=== PATIENT | female | born 1965 | race Caucasian/White ===

== ENCOUNTER 2016-05-04 12:40 | Emergency (ER) | payer OTHER | END 2016-05-04 16:11 | disposition home or self-care (01) | DX: J06.9 Acute upper respiratory infection, unspecified (principal); I10 Essential (primary) hypertension; E03.9 Hypothyroidism, unspecified ==

== ENCOUNTER 2016-05-14 18:20 | Emergency (ER) | payer OTHER ==
[2016-05-14] MEDS ORDERED: HYDROcod/ACET 5/325 Prepack 6 PO STA (21:21)
[2016-05-14] MEDS ORDERED: HYDROcod/ACET 5/325 Prepack 6 PO ONE (21:25)
== END 2016-05-14 21:38 | disposition home or self-care (01) ==
DX: R07.89 Other chest pain (principal); I10 Essential (primary) hypertension; E03.9 Hypothyroidism, unspecified

== ENCOUNTER 2016-08-22 14:34 | Outpatient (CLI) | payer OTHER ==
[2016-08-22 17:09] LABS: THYROID STIMULATING HORMONE < 0.08 uIU/mL (0.34-5.60)
== END 2016-08-22 14:35 | disposition home or self-care (01) ==
LOC: LAB 14:34
PROVIDERS: ATTEND Nurse Practitioner Family
DX: E03.4 Atrophy of thyroid (acquired) (principal)
CPT/HCPCS: 84439; 84443; 84481; 84482

== ENCOUNTER 2016-09-17 13:14 | Outpatient (CLI) | payer OTHER ==
--- NOTE | 2016-09-20 15:47 | Mammography Report ---
DIGITAL SCREENING MAMMOGRAM: 09/17/2016 CLINICAL INDICATION: A 51-year-old nulliparous patient for screening. COMPARISON: 05/2015 TECHNIQUE: Routine CC and MLO projections were obtained of the breasts. FINDINGS: Scattered fibroglandular tissue is present within the breasts. There are no dominant alberto s, suspicious microcalcifications, or secondary signs of malignancy. In comparison to the previous st udies, there are no significant changes. ASSESSMENT: NO MAMMOGRAPHIC EVIDENCE OF MALIGNANCY. NO SIGNIFICANT INTERVAL CHANGES. RECOMMENDATION: Screening mammography is recommended annually. BIRADS category 1 - negative. STANDARD QUALIFYING STATEMENTS 1. This examination was reviewed with the aid of Computed-Aided Detection (CAD). 2. A negative or benign imaging report should not delay biopsy if clinically suspicious findings are present. Consider surgical consultation if warranted. More than 5% of cancers are not identified by i maging. 3. Dense breasts may obscure an underlying neoplasm. JOB #: [id number] EXT JOB #:[id number]
== END 2016-09-17 13:15 | disposition home or self-care (01) ==
LOC: DI 13:14
PROVIDERS: ATTEND Nurse Practitioner Family
DX: Z12.39 Encounter for other screening for malignant neoplasm of breast (principal)
CPT/HCPCS: 77067

== ENCOUNTER 2016-12-23 08:16 | Outpatient (CLI) | payer OTHER ==
[2016-12-23 09:05] LABS: ALBUMIN/GLOBULIN RATIO 1.3 (1.0-2.2); BILIRUBIN,TOTAL 0.7 mg/dL (0.2-1.0); CALCIUM 8.9 mg/dL (8.5-10.3); POTASSIUM 4.2 mmol/L (3.5-5.0); TOTAL PROTEIN 6.8 g/dL (6.7-8.2)
[2016-12-23 09:12] LABS: BASOPHILS % (AUTO) 0.5 %; EOSINOPHILS # (AUTO) 0.2 10^3/uL (0.0-0.7); EOSINOPHILS % (AUTO) 2.3 %; HCT - HEMATOCRIT 36.6 % (37.0-47.0); HGB - HEMOGLOBIN 12.5 g/dL (12.0-16.0); LYMPHOCYTES # (AUTO) 2.7 10^3/uL (1.5-3.5); LYMPHOCYTES % (AUTO) 31.4 %; MEAN CORPUSCULAR HEMOGLOBIN 31.7 pg (27.0-31.0); MEAN CORPUSCULAR HGB CONC 34.1 g/dL (32.0-36.0); MEAN CORPUSCULAR VOLUME 93.1 fL (81.0-99.0); MEAN PLATELET VOLUME 7.5 fL (7.9-10.8); MONOCYTES # (AUTO) 0.5 10^3/uL (0.0-1.0); MONOCYTES % (AUTO) 5.5 %; NEUTROPHILS # (AUTO) 5.3 10^3/uL (1.5-6.6); NEUTROPHILS % (AUTO) 60.3 %; RED BLOOD COUNT 3.94 10^6/uL (4.20-5.40); RED CELL DISTRIBUTION WIDTH 13.3 % (12.0-15.0); THYROID STIMULATING HORMONE 0.28 uIU/mL (0.34-5.60); UNCORRECTED WHITE BLOOD COUNT 8.7 x10^3/uL; WHITE BLOOD COUNT 8.7 x10^3/uL (4.8-10.8)
[2016-12-23 09:17] LABS: FERRITIN 12.8 ng/mL (11.0-306.8)
== END 2016-12-23 08:17 | disposition home or self-care (01) ==
LOC: LAB 08:16
PROVIDERS: ATTEND Nurse Practitioner Family
DX: R53.82 Chronic fatigue, unspecified (principal); L65.9 Nonscarring hair loss, unspecified; E03.4 Atrophy of thyroid (acquired)
CPT/HCPCS: 36415; 80050; 82728; 83540; 84436; 84466; 84481; 85651; 86141

== ENCOUNTER 2017-02-10 14:31 | Emergency (ER) | payer OTHER ==
[2017-02-10 14:40] VITALS: BP 111/64
--- NOTE | 2017-02-10 14:44 | ED Physician Documentation ---
PD HPI SKIN - Stated complaint Stated Complaint: RASH - Chief complaint Chief Complaint: General - History obtained from History obtained from: Patient - History of Present Illness Timing - onset: How many days ago (2) Timing - duration: Days (2) Timing - details: Gradual onset, Still present (increased number of spots today) Location: Bodywide Quality / character: Itchy, Discolored (red), Raised, Vesicular (almost - coming to faint point but not truly vesicular) Improved by: Steroid cream Associated symptoms: No: Fever, Abd pain, N/V/D Contributing factors: Exposed to medication (she had a new brand of thyroid medication started 3 weeks ago (liothyroxine instead of Bronson), otherwise same meds.). No: Exposed to soap / lotion, Insect bite /sting, Recent illness Similar symptoms before: Has not had sx before Recently seen: Not recently seen Review of Systems Constitutional: denies: Fever, Chills Nose: denies: Rhinorrhea / runny nose, Congestion Throat: denies: Sore throat Respiratory: denies: Cough GI: denies: Abdominal Pain, Nausea, Vomiting, Diarrhea : denies: Dysuria, Frequency Skin: reports: Rash PD PAST MEDICAL HISTORY - Past Medical History Cardiovascular: Hypertension, High cholesterol Respiratory: None Neuro: None Endocrine/Autoimmune: HyPOthyroidism HEENT: None Psych: Anxiety, Other - Past Surgical History Past Surgical History: No - Present Medications Home Medications: Ambulatory Orders Medication Instructions Recorded Confirmed Alprazolam [Xanax] 0.5 mg ORAL BID 03/26/14 05/14/16 Citalopram Hydrobromide [Celexa] 40 mg ORAL DAILY 03/26/14 05/14/16 Lisinopril 20 mg ORAL DAILY 03/26/14 05/14/16 Thyroid,Pork [[place] Thyroid] 90 mg ORAL DAILY 03/26/14 05/14/16 Zolpidem Tartrate [Ambien] 10 mg ORAL QPM PRN 03/26/14 05/14/16 Control Pills 08/15/14 08/15/14 Ibuprofen [Motrin] 800 mg PO Q8H PRN #30 tablet 08/15/14 05/14/16 Simvastatin 20 mg QPM 08/15/14 05/14/16 Albuterol Sulfate [Proair Hfa 8.5 gm IH QID #1 hfa.aer.ad 05/04/16 05/14/16 Inhaler] guaiFENesin/CODEINE [Robitussin AC] 10 ml PO Q6H PRN #240 ml 05/04/16 05/14/16 HYDROcod/ACETAM 5/325 [[place] 5/325] 1 - 2 ea PO Q6H PRN #15 tablet 05/14/16 Cetirizine [ZyrTEC] 10 mg PO DAILY #20 tablet 02/10/17 Dexamethasone [Decadron] 4 mg PO BID #10 tablet 02/10/17 - Allergies Allergies/Adverse Reactions: Allergies Allergy/AdvReac Type Severity Reaction Status Date / Time diphenhydramine HCl * Allergy Unknown Verified 02/10/17 14:40 [From Benadryl] - Social History Does the pt smoke?: No Smoking Status: Never smoker Does the pt drink ETOH?: Yes Does the pt have substance abuse?: No - Immunizations Immunizations are current?: Yes PD ED PE NORMAL - Vitals Vital signs reviewed: Yes - General General: Alert and oriented X 3, No acute distress, Well developed/nourished - HEENT HEENT: Ears normal, Pharynx benign - Neck Neck: Supple, no meningeal sign, Other (mild anterior adenopathy of neck) - Cardiac Cardiac: RRR, No murmur - Respiratory Respiratory: Clear bilaterally - Abdomen Abdomen: Soft, Non tender, No organomegaly - Derm Derm: Normal color, Warm and dry, Other (extremities and trunk with discrete raised, pointed red spots with slight tenderness. Not vesicular per se. No pustules. ) - Extremities Extremities: No tenderness to palpate, Normal ROM s pain, No edema, No calf tenderness / cord - Neuro Neuro: Alert and oriented X 3, No motor deficit, Normal speech Results - Vitals Vitals: Vital Signs - 24 hr 02/10/17 14:36 Temperature 36.6 C Heart Rate 79 Respiratory 18 Rate Blood Pressure 111/64 O2 Saturation 100 Oxygen O2 Source Room air - Labs Labs: Microbiology 02/10/17 15:04 Wound Culture - Preliminary Back - Lower No growth PD MEDICAL DECISION MAKING - ED course Complexity details: considered differential (the spots almost come to a point but truly vesicles as yet. Are not umbilicated, but could be molluscum. No URI symptoms to suggest varicella or such. Likely viral exanthem. She has pets at home, so to check them for fleas. ), d/w patient Departure - Departure Disposition: 01 Home, Self Care Clinical Impression: Vesicular rash Condition: Stable Record reviewed to determine appropriate education?: Yes Instructions: ED Dermatitis Non Specific Rash Follow-Up: KIRK GARCIA ARNP [Primary Care Provider] - Prescriptions: Cetirizine [ZyrTEC] 10 mg PO DAILY #20 tablet Dexamethasone [Decadron] 4 mg PO BID #10 tablet Comments: There are many potential causes of this rash. It may be an allergy response to medication or topical from things like bug bites. It does not look bacterial at this point but it did do a culture of a couple of the spots. This will result in 2-3 days. For now we will treated with dexamethasone steroid twice daily for 5 days. Add cetirizine long-acting antihistamine if needed for itching. Cool towels can help as well. There is some [id number] medications such as Aveeno (oatmeal colloid) which can help with the itching as well. Recheck if not improved over the next 2 or 3 days. Discharge Date/Time: 02/10/17 15:14
[2017-02-10] MEDS ORDERED: DEXAMETHASONE 10 MG/ML VIAL PO STA (15:06)
[2017-02-10] MEDS ORDERED: DEXAMETHASONE 10 MG/ML VIAL ONE (15:14)
== END 2017-02-10 15:14 | disposition home or self-care (01) ==
LOC: ED 14:31
DX: R21 Rash and other nonspecific skin eruption (principal); I10 Essential (primary) hypertension; E78.00 Pure hypercholesterolemia, unspecified; E03.9 Hypothyroidism, unspecified
CPT/HCPCS: 87070; 87205; 99282; 99283

== ENCOUNTER 2017-02-28 09:34 | Outpatient (CLI) | payer OTHER ==
[2017-02-28 18:30] LABS: BASOPHILS % (AUTO) 0.6 %; EOSINOPHILS # (AUTO) 0.2 10^3/uL (0.0-0.7); EOSINOPHILS % (AUTO) 2.6 %; HCT - HEMATOCRIT 38.1 % (37.0-47.0); HGB - HEMOGLOBIN 12.6 g/dL (12.0-16.0); LYMPHOCYTES # (AUTO) 2.6 10^3/uL (1.5-3.5); LYMPHOCYTES % (AUTO) 41.6 %; MEAN CORPUSCULAR HEMOGLOBIN 31.1 pg (27.0-31.0); MEAN CORPUSCULAR VOLUME 94.3 fL (81.0-99.0); MEAN PLATELET VOLUME 8.4 fL (7.9-10.8); MONOCYTES # (AUTO) 0.3 10^3/uL (0.0-1.0); MONOCYTES % (AUTO) 4.8 %; NEUTROPHILS # (AUTO) 3.2 10^3/uL (1.5-6.6); NEUTROPHILS % (AUTO) 50.4 %; NUCLEATED RED BLOOD CELLS AUTO 0.1 /100WBC; RED BLOOD COUNT 4.04 10^6/uL (4.20-5.40); RED CELL DISTRIBUTION WIDTH 12.9 % (12.0-15.0); UNCORRECTED WHITE BLOOD COUNT 6.4 x10^3/uL; WHITE BLOOD COUNT 6.4 x10^3/uL (4.8-10.8)
[2017-02-28 19:11] LABS: ALBUMIN/GLOBULIN RATIO 1.1 (1.0-2.2); BILIRUBIN,TOTAL 0.4 mg/dL (0.2-1.0); CALCIUM 8.5 mg/dL (8.5-10.3); POTASSIUM 3.9 mmol/L (3.5-5.0); TOTAL PROTEIN 6.7 g/dL (6.7-8.2)
[2017-02-28 19:21] LABS: THYROID STIMULATING HORMONE 0.68 uIU/mL (0.34-5.60)
[2017-02-28 19:28] LABS: TOTAL T3 0.95 ng/mL (0.87-1.78)
[2017-03-01 10:07] LABS: HOMOCYSTEINE 4.7 umol/L (<10.4)
== END 2017-02-28 09:35 | disposition home or self-care (01) ==
LOC: LAB.F 09:34
PROVIDERS: ATTEND Nurse Practitioner Family
DX: R53.82 Chronic fatigue, unspecified (principal); E03.4 Atrophy of thyroid (acquired)
CPT/HCPCS: 36415; 80050; 81599; 82626; 82627; 83090; 84436; 84439; 84480; 84481; 85651; 86140; 86141; 86376; 86800

== ENCOUNTER 2017-09-22 15:49 | Emergency (ER) | payer OTHER ==
[2017-09-22 16:06] VITALS: BP 123/79
--- NOTE | 2017-09-22 16:48 | ED Physician Documentation ---
PD HPI URI - Stated complaint Stated Complaint: SINUS ISSUES - Chief complaint Chief Complaint: Heent - History obtained from History obtained from: Patient - History of Present Illness Timing - onset: How many weeks ago (03/29) Timing duration: Weeks Timing details: Gradual onset, Still present (worsening) Associated symptoms: Fever, Chills, Nasal congestion, Sinus pain Contributing factors: No: COPD / asthma Review of Systems Constitutional: denies: Fever, Chills Nose: reports: Rhinorrhea / runny nose, Congestion, Sinus pressure / pain Throat: reports: Sore throat Cardiac: denies: Chest pain / pressure Respiratory: denies: Cough PD PAST MEDICAL HISTORY - Past Medical History Cardiovascular: Hypertension, High cholesterol Respiratory: None Endocrine/Autoimmune: HyPOthyroidism HEENT: None Psych: Anxiety, Other - Past Surgical History Past Surgical History: No - Present Medications Home Medications: Ambulatory Orders Medication Instructions Recorded Confirmed Alprazolam [Xanax] 0.5 mg ORAL BID 03/26/14 05/14/16 Citalopram Hydrobromide [Celexa] 40 mg ORAL DAILY 03/26/14 05/14/16 Lisinopril 20 mg ORAL DAILY 03/26/14 05/14/16 Thyroid,Pork [[place] Thyroid] 180 mg ORAL DAILY 03/26/14 05/14/16 Zolpidem Tartrate [Ambien] 10 mg ORAL QPM PRN 03/26/14 05/14/16 Simvastatin 20 mg QPM 08/15/14 05/14/16 Cetirizine [ZyrTEC] 10 mg PO DAILY #20 tablet 02/10/17 Benzonatate [Tessalon] 100 mg PO TID PRN #20 capsule 09/22/17 Cephalexin [Keflex] 500 mg PO TID #21 capsule 09/22/17 Dexamethasone [Decadron] 4 mg PO DAILY #5 tablet 09/22/17 Lactobacillus Acidophilus 1 each PO 09/22/17 [Probiotic Acidophilus] buPROPion [Wellbutrin Sr] 150 mg PO DAILY 09/22/17 09/22/17 - Allergies Allergies/Adverse Reactions: Allergies Allergy/AdvReac Type Severity Reaction Status Date / Time diphenhydramine HCl * Allergy Unknown Verified 09/22/17 16:05 [From Benadryl] - Social History Does the pt smoke?: No Smoking Status: Never smoker Does the pt drink ETOH?: Yes Does the pt have substance abuse?: No - Immunizations Immunizations are current?: Yes - POLST Patient has POLST: No PD ED PE NORMAL - Vitals Vital signs reviewed: Yes - General General: Alert and oriented X 3, No acute distress, Well developed/nourished - HEENT HEENT: Ears normal, Moist mucous membranes, Pharynx benign, Other (sinus area tender to percussion) - Neck Neck: Supple, no meningeal sign, No adenopathy - Cardiac Cardiac: RRR, No murmur - Respiratory Respiratory: Clear bilaterally Results - Vitals Vitals: Oxygen O2 Source Room air PD MEDICAL DECISION MAKING - ED course Complexity details: considered differential, d/w patient - Sepsis Event Vital Signs: Oxygen O2 Source Room air Departure - Departure Disposition: 01 Home, Self Care Clinical Impression: Acute sinusitis Qualifiers: Sinusitis location: unspecified location Recurrence: non-recurrent Qualified Code(s): J01.90 - Acute sinusitis, unspecified Condition: Stable Record reviewed to determine appropriate education?: Yes Instructions: ED Sinusitis Abx Tx Follow-Up: Anderson Corona MD [Primary Care Provider] - Prescriptions: Benzonatate [Tessalon] 100 mg PO TID PRN #20 capsule PRN Reason: Cough Cephalexin [Keflex] 500 mg PO TID #21 capsule Dexamethasone [Decadron] 4 mg PO DAILY #5 tablet Comments: Saline nasal spray several times a day to cleanse the nasal passage. Continue your usual medications. Add Decadron steroid anti-inflammatory for 5 days. This should help quite a bit to reduce inflammation and promote drainage and decrease pressure. There may be some bacterial component to it by her description and so add Keflex 3 times a day for a week. Use Tessalon if needed for cough. Recheck if still not improving over the next several days. Discharge Date/Time: 09/22/17 17:56
== END 2017-09-22 17:56 | disposition home or self-care (01) ==
LOC: ED 15:49
DX: J01.90 Acute sinusitis, unspecified (principal); I10 Essential (primary) hypertension
CPT/HCPCS: 99283

== ENCOUNTER 2018-04-26 14:56 | Emergency (ER) | payer OTHER ==
[2018-04-26 15:06] VITALS: BP 111/64
--- NOTE | 2018-04-26 15:14 | ED Physician Documentation ---
History of Present Illness - Stated complaint Stated Complaint: BILAT EYE IRRATION - Chief complaint Chief Complaint: Heent - History obtained from History obtained from: Patient - History of Present Illness Timing: How many days ago (2) Pain level max: 3 Pain level now: 2 - Additonal information Additional information: 52-year-old female states she has been fighting a sinus infection for a few days and started noticing the right lower eyelid swelling and turning red with some clear discharge. Nothing makes it better or worse. She describes it is mostly itchy but also burning. Does not wear contacts or glasses Review of Systems Constitutional: denies: Fever, Chills Throat: denies: Sore throat Respiratory: denies: Cough GI: denies: Vomiting, Diarrhea Skin: denies: Rash Musculoskeletal: denies: Neck pain, Back pain PD PAST MEDICAL HISTORY - Past Medical History Cardiovascular: Hypertension, High cholesterol Respiratory: None Endocrine/Autoimmune: HyPOthyroidism HEENT: None Psych: Anxiety, Other - Past Surgical History Past Surgical History: No - Present Medications Home Medications: Ambulatory Orders Medication Instructions Recorded Confirmed Alprazolam [Xanax] 0.5 mg ORAL BID 03/26/14 04/26/18 Citalopram Hydrobromide [Celexa] 40 mg ORAL DAILY 03/26/14 04/26/18 Lisinopril 20 mg ORAL DAILY 03/26/14 04/26/18 Thyroid,Pork [[place] Thyroid] 180 mg ORAL DAILY 03/26/14 04/26/18 Zolpidem Tartrate [Ambien] 10 mg ORAL QPM PRN 03/26/14 04/26/18 Simvastatin 20 mg QPM 08/15/14 04/26/18 Cetirizine [ZyrTEC] 10 mg PO DAILY #20 tablet 02/10/17 04/26/18 buPROPion [Wellbutrin Sr] 150 mg PO DAILY 09/22/17 04/26/18 Ketotifen Fumarate [Zaditor] 1 drops EACHEYE Q8H PRN #1 drops 04/26/18 Polymyxin B/Trimeth Ophth Drop 1 drops EACHEYE Q3H 7 Days #1 04/26/18 [Polytrim Ophth Drops] bottle - Allergies Allergies/Adverse Reactions: Allergies Allergy/AdvReac Type Severity Reaction Status Date / Time diphenhydramine HCl * Allergy Anxiety Verified 04/26/18 15:07 [From Benadryl] - Social History Does the pt smoke?: No Smoking Status: Never smoker Does the pt drink ETOH?: Yes Does the pt have substance abuse?: No - Immunizations Immunizations are current?: Yes - POLST Patient has POLST: No PD ED PE NORMAL - Vitals Vital signs reviewed: Yes - General General: Alert and oriented X 3, No acute distress - HEENT HEENT: Moist mucous membranes, Pharynx benign, Other (R eye - mild erythema and stye to the lower eyelid. clear drainage. No pain with EOM. L eye normal) - Neck Neck: Supple, no meningeal sign - Cardiac Cardiac: RRR, Strong equal pulses - Respiratory Respiratory: No respiratory distress, Clear bilaterally - Derm Derm: Warm and dry - Neuro Neuro: Alert and oriented X 3 - Psych Psych: Normal mood, Normal affect Results - Vitals Vitals: Vital Signs - 24 hr 04/26/18 15:04 Temperature 36.3 C L Heart Rate 97 Respiratory 16 Rate Blood Pressure 111/64 O2 Saturation 100 Oxygen O2 Source Room air PD MEDICAL DECISION MAKING - ED course Complexity details: considered differential, d/w patient ED course: 52-year-old female with a right eye stye versus possible allergic/bacterial conjunctivitis. Placed on Polytrim ophthalmic as well as Zaditor eyedrops and have her follow-up with her doctor. She does not wear contacts. No evidence of foreign body. Patient counseled regarding signs and symptoms for which I believe and urgent re-evaluation would be necessary. Patient with good understanding of and agreement to plan and is comfortable going home at this time This document was made in part using voice recognition software. While efforts are made to proofread this document, sound alike and grammatical errors may occur. Departure - Departure Disposition: Home, Self Care Clinical Impression: Stye Qualifiers: Laterality: right Eyelid: lower Qualified Code(s): H00.012 - Hordeolum externum right lower eyelid Conjunctivitis Qualifiers: Conjunctivitis type: acute Acute conjunctivitis type: unspecified Laterality: right Qualified Code(s): H10.31 - Unspecified acute conjunctivitis, right eye Condition: Good Instructions: ED Conjunctivitis Nonspecific, ED Hordeolum Follow-Up: Adnerson Corona MD [Primary Care Provider] - Within 1 week (if not better) Prescriptions: Ketotifen Fumarate [Zaditor] 1 drops EACHEYE Q8H PRN #1 drops PRN Reason: itching Polymyxin B/Trimeth Ophth Drop [Polytrim Ophth Drops] 1 drops EACHEYE Q3H 7 Days #1 bottle Comments: Use the medications as prescribed. Return if you worsen. This should improve over the next 2-3 days. Also use warm compresses 2-3 times daily. Discharge Date/Time: 04/26/18 15:17
== END 2018-04-26 15:17 | disposition home or self-care (01) ==
LOC: ED 14:56
DX: H00.012 Hordeolum externum right lower eyelid (principal); H10.31 Unspecified acute conjunctivitis, right eye; I10 Essential (primary) hypertension; E78.00 Pure hypercholesterolemia, unspecified; E03.9 Hypothyroidism, unspecified
CPT/HCPCS: 99283

== ENCOUNTER 2018-08-23 13:16 | Emergency (ER) | payer OTHER ==
[2018-08-23 13:27] VITALS: BP 128/75
--- NOTE | 2018-08-23 14:24 | ED Physician Documentation ---
PD HPI URI - Stated complaint Stated Complaint: SORE THROAT/DIZZY/EAR PX - Chief complaint Chief Complaint: Heent - History obtained from History obtained from: Patient - History of Present Illness Timing - onset: How many days ago (2-3 days of congestion and some sore throat, ear pressure. Now with marked left ear pain and throat pain with swallowing today.) Timing duration: Days Timing details: Gradual onset, Still present Associated symptoms: Ear pain (left), Sinus pain, Sore throat. No: Fever, Dyspnea, NVD Contributing factors: No: Sick contact Similar symptoms before: Has not had sx before Recently seen: Not recently seen Review of Systems Constitutional: denies: Fever Ears: reports: Ear pain Nose: reports: Congestion, Sinus pressure / pain Throat: reports: Sore throat. 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 : None HEENT: None Psych: Anxiety, Other Musculoskeletal: None Derm: None - Past Surgical History Past Surgical History: No - Present Medications Home Medications: Ambulatory Orders Medication Instructions Recorded Confirmed Alprazolam [Xanax] 0.5 mg ORAL BID 03/26/14 08/23/18 Citalopram Hydrobromide [Celexa] 40 mg ORAL DAILY 03/26/14 08/23/18 Lisinopril 20 mg ORAL DAILY 03/26/14 08/23/18 Thyroid,Pork [[place] Thyroid] 180 mg ORAL DAILY 03/26/14 08/23/18 Zolpidem Tartrate [Ambien] 10 mg ORAL QPM PRN 03/26/14 08/23/18 Simvastatin 20 mg QPM 08/15/14 08/23/18 Cetirizine [ZyrTEC] 10 mg PO DAILY #20 tablet 02/10/17 08/23/18 buPROPion [Wellbutrin Sr] 150 mg PO DAILY 09/22/17 08/23/18 Ketotifen Fumarate [Zaditor] 1 drops EACHEYE Q8H PRN #1 drops 04/26/18 08/23/18 Polymyxin B/Trimeth Ophth Drop 1 drops EACHEYE Q3H 7 Days #1 04/26/18 08/23/18 [Polytrim Ophth Drops] bottle Amoxicillin 500 mg PO TID #21 capsule 08/23/18 Naproxen 500 mg PO BID #20 tablet 08/23/18 dexAMETHasone [Decadron] 4 mg PO DAILY #5 tablet 08/23/18 guaiFENesin/CODEINE [Robitussin AC] 10 ml PO Q6H PRN #240 ml 08/23/18 - Allergies Allergies/Adverse Reactions: Allergies Allergy/AdvReac Type Severity Reaction Status Date / Time diphenhydramine HCl * Allergy Anxiety Verified 08/23/18 13:27 [From Benadryl] - Social History Does the pt smoke?: No Smoking Status: Never smoker Does the pt drink ETOH?: Yes Does the pt have substance abuse?: No - Immunizations Immunizations are current?: Yes - POLST Patient has POLST: No PD ED PE NORMAL - Vitals Vital signs reviewed: Yes - General General: Alert and oriented X 3, Well developed/nourished - HEENT HEENT: Pharynx benign. No: Ears normal (right is okay. left with marked redness and swelling, bulging and looks tense. No perforation at this time. ) - Neck Neck: Supple, no meningeal sign, Other (left anterior adenopathy) - Respiratory Respiratory: Clear bilaterally - Derm Derm: Normal color, Warm and dry, No rash - Neuro Neuro: Alert and oriented X 3, No motor deficit, Normal speech Results - Vitals Vitals: Vital Signs - 24 hr 08/23/18 13:24 Temperature 36.6 C Heart Rate 106 H Respiratory 14 Rate Blood Pressure 128/75 O2 Saturation 100 Oxygen O2 Source Room air PD MEDICAL DECISION MAKING - ED course Complexity details: considered differential (sounds likely either URI or allergies and now otitis media left. ), d/w patient Departure - Departure Disposition: 01 Home, Self Care Clinical Impression: Otitis media Qualifiers: Otitis media type: suppurative Chronicity: acute Laterality: left Recurrence: non-recurrent Spontaneous tympanic membrane rupture: without spontaneous rupture Qualified Code(s): H66.002 - Acute suppurative otitis media without spontaneous rupture of ear drum, left ear Upper respiratory infection Qualifiers: URI type: unspecified URI Qualified Code(s): J06.9 - Acute upper respiratory infection, unspecified Condition: Stable Record reviewed to determine appropriate education?: Yes Instructions: ED Otitis Media Acute Adult Prescriptions: Amoxicillin 500 mg PO TID #21 capsule dexAMETHasone [Decadron] 4 mg PO DAILY #5 tablet guaiFENesin/CODEINE [Robitussin AC] 10 ml PO Q6H PRN #240 ml PRN Reason: Cough Naproxen 500 mg PO BID #20 tablet Comments: Stay well-hydrated. Naproxen twice daily for inflammation and pain. Add Tylenol if needed. Amoxicillin antibiotic 3 times a day for a week. Add Decadron steroid for inflammation of the eustachian tube and bronchials. Add cough medicine as needed. Recheck if not improving the next day or 2. Discharge Date/Time: 08/23/18 15:51
[2018-08-23] MEDS ORDERED: AMOXICILLIN 250 MG CAPSULE PO STA (15:01)
[2018-08-23] MEDS ORDERED: guaiFENesin/CODEINE 5 ML UDC PO STA (15:01)
[2018-08-23] MEDS ORDERED: DEXAMETHASONE 10 MG/ML VIAL PO STA (15:01)
[2018-08-23] MEDS ORDERED: CHERRY SYRUP 10 ML UDC PO ONE (15:01)
[2018-08-23] MEDS ORDERED: MECLIZINE 12.5 MG TABLET PO STA (15:01)
[2018-08-23] MEDS ORDERED: ACETAMINOPHEN 325 MG TABLET PO STA (15:03)
== END 2018-08-23 15:51 | disposition home or self-care (01) ==
LOC: ED 13:16
DX: H66.002 Acute suppurative otitis media without spontaneous rupture of ear drum, left ear (principal); J06.9 Acute upper respiratory infection, unspecified; I10 Essential (primary) hypertension
CPT/HCPCS: 99283; A9270

== ENCOUNTER 2018-09-07 15:40 | Emergency (ER) | payer OTHER ==
[2018-09-07 15:44] VITALS: BP 133/94
--- NOTE | 2018-09-07 15:57 | ED Physician Documentation ---
PD HPI URI - Stated complaint Stated Complaint: FLU SYMPTOMS - Chief complaint Chief Complaint: Resp - History obtained from History obtained from: Patient - History of Present Illness Timing - onset: How many weeks ago (has had cough and congestion for several weeks. Seen few weeks ago with it and Dx URI and ear infection. Rx meds and improved ear and decreased cough but not completely. Has had increased cough the past week, with poor sleep due to cough.) Timing duration: Weeks Timing details: Gradual onset, Still present (worse the past week) Associated symptoms: Productive cough, Chest pain (anteriorly with coughing), Dyspnea. No: Fever, Ear pain (not for the past 2 weeks, that part improved.), Nasal congestion Contributing factors: No: Sick contact, COPD / asthma Recently seen: Emergency Dept (few weeks ago) Review of Systems Constitutional: reports: Myalgias, Fatigue. denies: Fever, Chills Nose: reports: Congestion. denies: Sinus pressure / pain Throat: denies: Sore throat Cardiac: reports: Chest pain / pressure (with coughing). denies: Palpitations, Pedal edema, Calf pain Respiratory: reports: Dyspnea, Cough. denies: Wheezing GI: denies: Nausea, Vomiting, Diarrhea Skin: denies: Rash, Lesions Musculoskeletal: denies: Extremity swelling PD PAST MEDICAL HISTORY - Past Medical History Cardiovascular: Hypertension, High cholesterol Respiratory: None Neuro: None Endocrine/Autoimmune: HyPOthyroidism GI: None CARE ASST: None : None HEENT: None Psych: Anxiety, Other Musculoskeletal: None Derm: None - Past Surgical History Past Surgical History: No - Present Medications Home Medications: Ambulatory Orders Medication Instructions Recorded Confirmed Alprazolam [Xanax] 0.5 mg ORAL BID 03/26/14 08/23/18 Citalopram Hydrobromide [Celexa] 40 mg ORAL DAILY 03/26/14 08/23/18 Lisinopril 20 mg ORAL DAILY 03/26/14 08/23/18 Thyroid,Pork [[place] Thyroid] 180 mg ORAL DAILY 03/26/14 08/23/18 Zolpidem Tartrate [Ambien] 10 mg ORAL QPM PRN 03/26/14 08/23/18 Simvastatin 20 mg QPM 08/15/14 08/23/18 Cetirizine [ZyrTEC] 10 mg PO DAILY #20 tablet 02/10/17 08/23/18 buPROPion [Wellbutrin Sr] 150 mg PO DAILY 09/22/17 08/23/18 Ketotifen Fumarate [Zaditor] 1 drops EACHEYE Q8H PRN #1 drops 04/26/18 08/23/18 Naproxen 500 mg PO BID #20 tablet 08/23/18 Albuterol Sulf [Ventolin Hfa 1 - 2 puffs INH Q4HR PRN #1 inhaler 09/07/18 Inhaler] Azithromycin [Zithromax] 0 mg PO DAILY #6 tablet 09/07/18 Benzonatate [Tessalon Perle] 100 mg PO TID PRN #30 capsule 09/07/18 dexAMETHasone [Decadron] 4 mg PO DAILY #5 tablet 09/07/18 guaiFENesin/CODEINE [Robitussin AC] 10 ml PO Q6H PRN #240 ml 09/07/18 - Allergies Allergies/Adverse Reactions: Allergies Allergy/AdvReac Type Severity Reaction Status Date / Time diphenhydramine HCl * Allergy Anxiety Verified 09/07/18 15:44 [From Benadryl] - Social History Does the pt smoke?: No Smoking Status: Never smoker Does the pt drink ETOH?: Yes Does the pt have substance abuse?: No - Immunizations Immunizations are current?: Yes - POLST Patient has POLST: No PD ED PE NORMAL - Vitals Vital signs reviewed: Yes - General General: Alert and oriented X 3, No acute distress, Well developed/nourished - HEENT HEENT: Ears normal, Pharynx benign - Neck Neck: Supple, no meningeal sign, No adenopathy - Cardiac Cardiac: RRR, No murmur - Respiratory Respiratory: Clear bilaterally - Abdomen Abdomen: Soft, Non tender - Back Back: No CVA TTP - Derm Derm: Normal color, Warm and dry - Extremities Extremities: No tenderness to palpate, Normal ROM s pain, No edema, No calf tenderness / cord - Neuro Neuro: Alert and oriented X 3, No motor deficit, Normal speech Results - Vitals Vitals: Vital Signs - 24 hr 09/07/18 15:43 Temperature 36.7 C Heart Rate 84 Respiratory 18 Rate Blood Pressure 133/94 H O2 Saturation 100 Oxygen O2 Source Room air PD MEDICAL DECISION MAKING - ED course Complexity details: re-evaluated patient, considered differential, d/w patient Departure - Departure Disposition: 01 Home, Self Care Clinical Impression: Lower resp. tract infection Condition: Stable Record reviewed to determine appropriate education?: Yes Instructions: ED Upper Resp Infec Abx Tx Prescriptions: Albuterol Sulf [Ventolin Hfa Inhaler] 1 - 2 puffs INH Q4HR PRN #1 inhaler PRN Reason: Shortness Of Air/Wheezing Azithromycin [Zithromax] 0 mg PO DAILY #6 tablet Benzonatate [Tessalon Perle] 100 mg PO TID PRN #30 capsule PRN Reason: Cough dexAMETHasone [Decadron] 4 mg PO DAILY #5 tablet guaiFENesin/CODEINE [Robitussin AC] 10 ml PO Q6H PRN #240 ml PRN Reason: Cough Comments: Stay well-hydrated. Zithromax antibiotic for 5 days. Decadron steroid for 5 days. Both are daily. Use albuterol inhaler 2 puffs 4 times a day and extra times as needed to improve breathing and reduce coughing. For the cough symptoms itself, you can use the codeine cough medicine and also the Tessalon Perls. Recheck if not improving over the next several days to week. Discharge Date/Time: 09/07/18 16:27
[2018-09-07] MEDS ORDERED: CHERRY SYRUP 10 ML UDC PO ONE (16:16)
[2018-09-07] MEDS ORDERED: DEXAMETHASONE 10 MG/ML VIAL PO STA (16:16)
[2018-09-07] MEDS ORDERED: BENZONATATE 100 MG CAPSULE PO STA (16:16)
== END 2018-09-07 16:27 | disposition home or self-care (01) ==
LOC: ED 15:40
DX: J22 Unspecified acute lower respiratory infection (principal); I10 Essential (primary) hypertension; Z79.899 Other long term (current) drug therapy; Z86.69 Personal history of other diseases of the nervous system and sense organs
CPT/HCPCS: 99283; A9270

== ENCOUNTER 2018-10-14 16:07 | Emergency (ER) | payer OTHER ==
[2018-10-14 16:17] VITALS: BP 130/52
--- NOTE | 2018-10-14 16:25 | ED Physician Documentation ---
History of Present Illness - Stated complaint Stated Complaint: LEFT FOOT INJURY - Chief complaint Chief Complaint: Ext Problem - History obtained from History obtained from: Patient - History of Present Illness Timing: Prior to arrival - Additonal information Additional information: Patient is a 53-year-old female presenting with left foot and ankle pain after [place]. Patient reports that her foot became stuck and she fell forward while walking and landed on her left knee bracing herself with her hands, although has no complaints to these areas except for superficial abrasion to the left knee. Patient has been unable to bear weight since this time and complains of lateral malleoli pain to the left ankle, as well as diffuse foot pain. Patient denies any changes and sensation and range of motion is limited due to pain. Patient denies striking of her head, loss of consciousness, or other injury. No other improving or worsening factors noted. Review of Systems Skin: denies: Rash, Lesions, Abrasion (s), Laceration (s) Musculoskeletal: reports: Extremity pain, Joint pain, Pain with weight bearing. denies: Extremity swelling, Joint swelling PD PAST MEDICAL HISTORY - Past Medical History Cardiovascular: Hypertension, High cholesterol Respiratory: None Neuro: None Endocrine/Autoimmune: HyPOthyroidism GI: None LEGAL ACTIVITY ADJUDICATOR: None : None HEENT: None Psych: Anxiety, Other Musculoskeletal: None Derm: None - Past Surgical History Past Surgical History: No - Present Medications Home Medications: Ambulatory Orders Medication Instructions Recorded Confirmed Alprazolam [Xanax] 0.5 mg ORAL BID 03/26/14 08/23/18 Citalopram Hydrobromide [Celexa] 40 mg ORAL DAILY 03/26/14 08/23/18 Lisinopril 20 mg ORAL DAILY 03/26/14 08/23/18 Thyroid,Pork [[place] Thyroid] 180 mg ORAL DAILY 03/26/14 08/23/18 Zolpidem Tartrate [Ambien] 10 mg ORAL QPM PRN 03/26/14 08/23/18 Simvastatin 20 mg QPM 08/15/14 08/23/18 Cetirizine [ZyrTEC] 10 mg PO DAILY #20 tablet 02/10/17 08/23/18 buPROPion [Wellbutrin Sr] 150 mg PO DAILY 09/22/17 08/23/18 Ketotifen Fumarate [Zaditor] 1 drops EACHEYE Q8H PRN #1 drops 04/26/18 08/23/18 Naproxen 500 mg PO BID #20 tablet 08/23/18 Albuterol Sulf [Ventolin Hfa 1 - 2 puffs INH Q4HR PRN #1 inhaler 09/07/18 Inhaler] Azithromycin [Zithromax] 0 mg PO DAILY #6 tablet 09/07/18 Benzonatate [Tessalon Perle] 100 mg PO TID PRN #30 capsule 09/07/18 dexAMETHasone [Decadron] 4 mg PO DAILY #5 tablet 09/07/18 guaiFENesin/CODEINE [Robitussin AC] 10 ml PO Q6H PRN #240 ml 09/07/18 Hydrocodone/Acetaminophen 1 - 2 each PO Q6H PRN #14 tablet 10/14/18 [Hydrocodon-Acetaminophen 5-325] - Allergies Allergies/Adverse Reactions: Allergies Allergy/AdvReac Type Severity Reaction Status Date / Time diphenhydramine HCl * Allergy Anxiety Verified 10/14/18 16:17 [From Benadryl] - Social History Does the pt smoke?: No Smoking Status: Never smoker Does the pt drink ETOH?: Yes Does the pt have substance abuse?: No - Immunizations Immunizations are current?: Yes - POLST Patient has POLST: No PD ED PE NORMAL - Vitals Vital signs reviewed: Yes - General General: Alert and oriented X 3, No acute distress, Well developed/nourished - HEENT HEENT: Atraumatic, Moist mucous membranes - Cardiac Cardiac: Strong equal pulses - Respiratory Respiratory: No respiratory distress - Derm Derm: Normal color, Warm and dry, No rash - Extremities Extremities: No deformity. No: No tenderness to palpate (Mild tenderness to left lateral malleoli and diffusely over left foot worse and at the dorsal aspect. No left knee or tib-fib pain with palpation. No other obvious deformities left lower extremity.) - Neuro Neuro: No sensory deficit. No: No motor deficit (Difficulty bearing weight over left leg with no distinct loss of strength or range of motion, but difficult due to pain. No changes in sensation.) - Psych Psych: Normal mood, Normal affect Results - Vitals Vitals: Vital Signs - 24 hr 10/14/18 16:15 Temperature 36.4 C L Heart Rate 96 Respiratory 18 Rate Blood Pressure 130/52 L O2 Saturation 98 Oxygen O2 Source Room air PD MEDICAL DECISION MAKING - ED course Complexity details: reviewed results, re-evaluated patient, considered differential, d/w patient ED course: Patient presenting with isolated left foot injury. Do not find evidence of other trauma, neurological deficit, systemic illness or other complication. Further evaluation limited to left foot and ankle. Plain films obtained which found evidence of fracture to the fifth metatarsal. Advised patient of results recommendations including using splint, pain medications, other supportive cares, return precautions, need for orthopedic surgery follow-up. Patient voiced understanding and is comfortable with discharge plan. Departure - Departure Disposition: 01 Home, Self Care Clinical Impression: Toe fracture, left Qualifiers: Encounter type: initial encounter Toe: lesser toe Fracture type: closed Phalanx: proximal Fracture alignment: nondisplaced Qualified Code(s): S92.515A - Nondisplaced fracture of proximal phalanx of left lesser toe(s), initial encounter for closed fracture Condition: Good Instructions: ED Fx Toe Closed Follow-Up: Anderson Corona MD [Primary Care Provider] - Within 3 Days Palomo Carney MD [Provider Admit Priv/Credential] - Within 3 Days Prescriptions: Hydrocodone/Acetaminophen [Hydrocodon-Acetaminophen 5-325] 1 - 2 each PO Q6H PRN #14 tablet PRN Reason: pain Comments: May keep boot in place to help for stability and pain control. Also recommend ice application, elevation, pain medication as needed and prescribed. If not taking [place], may use ibuprofen/Tylenol. If taking Elk regularly, recommend stool softener or laxative to avoid constipation. Please follow-up with your primary care physician and orthopedic surgery in the next 2 to 3 days. Return to ED sooner if experience worsening symptoms or have other concerns.
--- NOTE | 2018-10-14 17:12 | XRAY Report ---
Reason: fell with diffuse foot pain, unable to bear weight Procedure Date: 10/14/2018 Accession Number: [id number] / [id number] Procedure: XR - Foot 3 View LT CPT Code: FULL RESULT: EXAM: LEFT FOOT RADIOGRAPHY EXAM DATE: 10/14/2018 04:54 PM. CLINICAL HISTORY: Diffuse left foot pain after fall. COMPARISON: None. TECHNIQUE: 4 views. FINDINGS: Bones: Acute nondisplaced oblique fracture of the fifth metatarsal diaphysis. Small accessory os peroneum. Bipartite medial great toe sesamoid, a normal variant. Joints: Normal alignment. No significant arthritic change. Soft Tissues: Mild swelling overlying the fracture site. IMPRESSION: Acute nondisplaced oblique fifth metatarsal fracture. RADIA
--- NOTE | 2018-10-14 17:15 | XRAY Report ---
Reason: fell, lateral malleoli pain Procedure Date: 10/14/2018 Accession Number: [id number] / [id number] Procedure: XR - Ankle 3 View LT CPT Code: FULL RESULT: EXAM: LEFT ANKLE RADIOGRAPHY EXAM DATE: 10/14/2018 04:54 PM. CLINICAL HISTORY: Left lateral malleolus pain after fall. COMPARISON: FOOT 3 VIEW LT 10/14/2018 4:28 PM. TECHNIQUE: 3 views. FINDINGS: Bones: Redemonstration of nondisplaced oblique fifth metatarsal fracture. No acute fracture at the ankle. Small accessory os peroneum. Joints: Normal alignment. The ankle mortise is symmetric. No tibiotalar joint effusion. Soft Tissues: Mild swelling overlying the fifth metatarsal fracture site. IMPRESSION: 1. Redemonstration of acute nondisplaced fifth metatarsal fracture. 2. No acute bony abnormality at the ankle. RADIA
== END 2018-10-14 17:34 | disposition home or self-care (01) ==
LOC: ED 16:07
DX: S92.355A Nondisplaced fracture of fifth metatarsal bone, left foot, initial encounter for closed fracture (principal); S80.212A Abrasion, left knee, initial encounter; W01.0XXA Fall on same level from slipping, tripping and stumbling without subsequent striking against object, initial encounter; Y93.01 Activity, walking, marching and hiking; Y92.89 Other specified places as the place of occurrence of the external cause; I10 Essential (primary) hypertension
CPT/HCPCS: 99283; 99284

== ENCOUNTER 2019-01-21 17:12 | Outpatient (CLI) | payer OTHER | END 2019-01-21 17:13 | disposition critical access hospital (66) | LOC: EMS 17:12 | PROVIDERS: ATTEND Surgery | DX: R10.9 Unspecified abdominal pain (principal); R11.2 Nausea with vomiting, unspecified; R19.7 Diarrhea, unspecified | CPT/HCPCS: A0425; A0427 ==

== ENCOUNTER 2019-01-21 17:38 | Inpatient (IN) | payer OTHER ==
--- NOTE | 2019-01-21 17:49 | ED Physician Documentation ---
PD HPI ABD PAIN - Stated complaint Stated Complaint: ABD PX - Chief complaint Chief Complaint: Abd Pain - History obtained from History obtained from: Patient - History of Present Illness Timing - onset: Today Timing - duration: Hours (1) Timing - details: Abrupt onset Quality: Other ("Like nothing she never felt before") Location: All over / everywhere Improved by: No: Eating, Laying still, Vomiting, BM, Position, Meds, Other Associated symptoms: Nausea, Vomiting, Diarrhea, Dizzy, Near syncope / syncope. No: Fever, Hematemesis, Hematochezia, Dysuria, Chest pain Recently seen: Not recently seen - Additional information Additional information: There is a 53-year-old woman who presents by ambulance. Her and her had given her dogs haircuts and they had just finished up around an hour and a half prior to presentation when she felt a little bit lightheaded so she went outside and then came in and drink some water and then began vomiting with severe diffuse abdominal pain.She had eaten leftover Greek with rice sometime between 12 and 1230 this afternoon. She also had an episode of diarrhea that started just prior to arrival. She denies any history of abdominal surgeries or gallstones. She is on no blood in the vomit or diarrhea. Denies fever. Denies passing out. She did receive fentanyl and Zofran in route and is feeling slightly better. Review of Systems Constitutional: denies: Fever Throat: denies: Sore throat Cardiac: denies: Palpitations Respiratory: denies: Dyspnea GI: reports: Abdominal Pain, Nausea, Vomiting, Diarrhea. 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 : None HEENT: None Psych: Anxiety, Other Musculoskeletal: None Derm: None - Past Surgical History Past Surgical History: No - Present Medications Home Medications: Ambulatory Orders Medication Instructions Recorded Confirmed Alprazolam [Xanax] 0.5 mg ORAL BID 03/26/14 08/23/18 Citalopram Hydrobromide [Celexa] 40 mg ORAL DAILY 03/26/14 08/23/18 Lisinopril 20 mg ORAL DAILY 03/26/14 08/23/18 Thyroid,Pork [[place] Thyroid] 180 mg ORAL DAILY 03/26/14 08/23/18 Zolpidem Tartrate [Ambien] 10 mg ORAL QPM PRN 03/26/14 08/23/18 Simvastatin 20 mg QPM 08/15/14 08/23/18 Cetirizine [ZyrTEC] 10 mg PO DAILY #20 tablet 02/10/17 08/23/18 buPROPion [Wellbutrin Sr] 150 mg PO DAILY 09/22/17 08/23/18 Ketotifen Fumarate [Zaditor] 1 drops EACHEYE Q8H PRN #1 drops 04/26/18 08/23/18 Naproxen 500 mg PO BID #20 tablet 08/23/18 Albuterol Sulf [Ventolin Hfa 1 - 2 puffs INH Q4HR PRN #1 inhaler 09/07/18 Inhaler] Azithromycin [Zithromax] 0 mg PO DAILY #6 tablet 09/07/18 Benzonatate [Tessalon Perle] 100 mg PO TID PRN #30 capsule 09/07/18 dexAMETHasone [Decadron] 4 mg PO DAILY #5 tablet 09/07/18 guaiFENesin/CODEINE [Robitussin AC] 10 ml PO Q6H PRN #240 ml 09/07/18 Hydrocodone/Acetaminophen 1 - 2 each PO Q6H PRN #14 tablet 10/14/18 [Hydrocodon-Acetaminophen 5-325] - Allergies Allergies/Adverse Reactions: Allergies Allergy/AdvReac Type Severity Reaction Status Date / Time diphenhydramine HCl * Allergy Anxiety Verified 01/21/19 17:40 [From Benadryl] - Social History Does the pt smoke?: No Smoking Status: Never smoker Does the pt drink ETOH?: Yes Does the pt have substance abuse?: No - Immunizations Immunizations are current?: Yes - POLST Patient has POLST: No PD ED PE NORMAL - Vitals Vital signs reviewed: Yes - General General: Alert and oriented X 3, No acute distress, Well developed/nourished, Other (Patient is just returned from the restroom where she had explosive stool. She looks little pale.) - HEENT HEENT: Atraumatic, PERRL, Other (Slightly dry mucous membranes. No scleral icterus.) - Cardiac Cardiac: RRR, No murmur, Strong equal pulses - Respiratory Respiratory: No respiratory distress, Clear bilaterally - Abdomen Abdomen: Soft, Non tender, Other (Hypoactive bowel tones with mildly distended abdomen but it does not appear to be tender to palpation.) - Derm Derm: Other (She is pale) - Neuro Neuro: Alert and oriented X 3, mulcher operator 2-12 intact, No motor deficit, No sensory deficit, Normal speech, Other (Patient ambulated to the bathroom and back without any ataxia.) Results - Vitals Vitals: Vital Signs - 24 hr 01/21/19 01/21/19 01/21/19 17:40 19:26 21:00 Temperature Heart Rate 85 89 93 Respiratory 22 16 17 Rate Blood Pressure 105/73 125/79 135/72 H O2 Saturation 100 100 98 01/21/19 23:10 Temperature 37.0 C Heart Rate 96 Respiratory 12 Rate Blood Pressure 137/76 H O2 Saturation 98 Oxygen O2 Source Room air - Labs Labs: Laboratory Tests 01/21/19 01/21/19 18:10 18:10 WBC 17.4 H RBC 4.46 Hgb 13.2 Hct 43.0 MCV 96.4 MCH 29.6 MCHC 30.7 L RDW 12.9 Plt Count 319 MPV 9.7 Neut # (Auto) 13.9 H Lymph # (Auto) 2.3 [place] # (Auto) 0.9 Eos # (Auto) 0.1 Baso # (Auto) 0.1 Absolute Nucleated RBC 0.00 Nucleated RBC % 0.0 Sodium 140 Potassium 4.0 Chloride 112 H Carbon Dioxide 16 L Anion Gap 12.0 BUN 35 H Creatinine 1.4 H Estimated GFR (MDRD) 39 L Glucose 126 H Calcium 8.9 Total Bilirubin 1.3 H AST 24 ALT 28 Alkaline Phosphatase 50 Total Protein 7.0 Albumin 3.8 Globulin 3.2 Albumin/Globulin Ratio 1.2 Lipase 36 PD MEDICAL DECISION MAKING - ED course Complexity details: re-evaluated patient, d/w patient ED course: 1899: The patient's white blood cell count is elevated at 17.4. Liver enzymes are normal and her lipase is normal. Went back to check on her and she stated that the pain was just starting to come back but she was requesting something to drink. She was feeling a little bit nauseous. Abdomen had hypoactive bowel tones still just diffusely tender. She is given another milligram of Dilaudid and 4 of Zofran and will reevaluate. She is instructed not to drink anything. 2100: Patient is still complaining of abdominal pain and has guarding in the left lower quadrant and right lower quadrant. The decision was made to obtain a CT scan of the abdomen and pelvis. Patient is in agreement. 2250: Patient's pain has returned. She will be given another milligram of Dilaudid. Her CT shows colitis. She has never had a colonoscopy. Will discuss with the hospitalist regarding admission. Departure - Departure Disposition: ED Place in Observation Clinical Impression: Colitis Condition: Good
[2019-01-21] MEDS ORDERED: SODIUM CHLORIDE 0.9% 1,000 ML IV ONE (17:59)
[2019-01-21 18:41] LABS: BASOPHILS # (AUTO) 0.1 10^3/uL (0.0-0.1); BASOPHILS % (AUTO) 0.3 %; EOSINOPHILS # (AUTO) 0.1 10^3/uL (0.0-0.7); EOSINOPHILS % (AUTO) 0.3 %; HGB - HEMOGLOBIN 13.2 g/dL (12.0-16.0); LYMPHOCYTES # (AUTO) 2.3 10^3/uL (1.5-3.5); LYMPHOCYTES % (AUTO) 13.2 %; MEAN CORPUSCULAR HEMOGLOBIN 29.6 pg (27.0-31.0); MEAN CORPUSCULAR HGB CONC 30.7 g/dL (32.0-36.0); MEAN CORPUSCULAR VOLUME 96.4 fL (81.0-99.0); MEAN PLATELET VOLUME 9.7 fL (7.9-10.8); MONOCYTES # (AUTO) 0.9 10^3/uL (0.0-1.0); MONOCYTES % (AUTO) 5.2 %; NEUTROPHILS # (AUTO) 13.9 10^3/uL (1.5-6.6); PLT - PLATELET COUNT 319 10^3/uL (130-450); RED BLOOD COUNT 4.46 10^6/uL (4.20-5.40); RED CELL DISTRIBUTION WIDTH 12.9 % (12.0-15.0); WHITE BLOOD COUNT 17.4 x10^3/uL (4.8-10.8)
[2019-01-21 18:53] LABS: ALBUMIN 3.8 g/dL (3.2-5.5); ALBUMIN/GLOBULIN RATIO 1.2 (1.0-2.2); BILIRUBIN,TOTAL 1.3 mg/dL (0.2-1.0); CALCIUM 8.9 mg/dL (8.5-10.3); CREATININE 1.4 mg/dL (0.4-1.0)
[2019-01-21] MEDS ORDERED: ONDANSETRON 4 MG/2 ML VIAL IVP STA (19:04)
[2019-01-21] MEDS ORDERED: HYDROmorphone 1 MG/ML CARPUJECT IVP STA ×2 (19:04→22:44)
[2019-01-21] MEDS ORDERED: IOVERSOL 320 100 ML VIAL IVP ONE ×2 (21:38→22:01)
--- NOTE | 2019-01-21 22:39 | CT Report ---
Reason: abd pain Procedure Date: 01/21/2019 Accession Number: [id number] / [id number] Procedure: CT - Abdomen/Pelvis W CPT Code: FULL RESULT: EXAM: CT ABDOMEN AND PELVIS EXAM DATE: 01/21/2019 09:59 PM. CLINICAL HISTORY: Abdomen pain. Nausea and vomiting. Diarrhea. COMPARISONS: None. TECHNIQUE: Routine helical CT imaging was performed through the abdomen and pelvis. IV contrast: OPTI 320 100ML. Enteric contrast: No. Reconstructions: Coronal and sagittal. In accordance with CT protocol optimization, one or more of the following dose reduction techniques were utilized for this exam: automated exposure control, adjustment of mA and/or KV based on patient size, or use of iterative reconstructive technique. FINDINGS: Lung Bases: Unremarkable. Liver: Normal. No masses. Gallbladder/Bile Ducts: Unremarkable. Spleen: Normal. Pancreas: Normal. Adrenal Glands: Normal. Kidneys: Normal. No masses or hydronephrosis. Peritoneal Cavity/Bowel: Normal. No free fluid, free air or adenopathy. No masses or acute inflammatory process. There is moderate amount of fluid within the colon and very slight wall thickening and enhancement of the descending colon. No significant colonic fluid collections. Pelvic Organs: Normal. The bladder and visualized pelvic organs are within normal limits. Vasculature: No aneurysms or other significant abnormality. Bones: No significant abnormality. Other: None. IMPRESSION: 1. Findings suggestive of possible changes of colitis. Minimal wall thickening in the descending colon. Moderate amount of fluid throughout the colon. RAD[facility]
--- NOTE | 2019-01-21 23:49 | HISTORY & PHYSICAL EXAMINATION ---
Chief Complaint - Chief Complaint Chief Complaint: abdominal pain, n/v/d History of Present Illness - Admitted From Admitted From:: [facility] - History Obtained From Records Reviewed: yes History obtained from: patient - History of Present Illness HPI Comment/Other: Patient seen and examined around 11:45pm on 01/21/19 Patient is a 53 y/o who presented to the ED to via EMS with severe abdominal pain, vomiting and diarrhea. Her symptoms started about 4 hours after eating left over icelandic food for lunch. Her pain was so severe that it caused her to double over. She called EMS, and was administered fentanyl in route. Since arriving she has been given zofran and dilaudid. She had several episodes of vomiting and diarrhea in the ED despite treatment. Her abdomen is still very tender to palpation. Work up included a CT of the abdomen/pelvis which showed possible changes of colitis with minimal wall thickening in the descending colon. There was also a moderate amount of fluid throughout the colon. She also had a WBC of 17. As a result of her persistent symptoms and the findings seen above she is being admitted for further treatment. At bedside she still complains of significant abdominal pain. She denies chest pain, dyspnea, fever or chills. History - Past Medical History Cardiovascular: reports: Hypertension, High cholesterol Respiratory: reports: None Neuro: reports: None Endocrine/Autoimmune: reports: HyPOthyroidism GI: reports: None RENDERER: reports: None : reports: None HEENT: reports: None Psych: reports: Depression, Anxiety Musculoskeletal: reports: None Derm: reports: None MRSA Hx?: Yes - Past Surgical History Other past surgical history: deviated septum repair - Family & Social History Family History: Mother: Renal Disease/Failure, Father: Cancer (lymphoma) Social History Notes: She denies smoking or any illicit substances. She drinks occasionally. - POLST Patient has POLST: No POLST Status: Full Code Meds/Allgy - Home Medications Home Medications: Ambulatory Orders Medication Instructions Recorded Confirmed Alprazolam [Xanax] 0.5 mg ORAL BID 03/26/14 08/23/18 Citalopram Hydrobromide [Celexa] 40 mg ORAL DAILY 03/26/14 08/23/18 Lisinopril 20 mg ORAL DAILY 03/26/14 08/23/18 Thyroid,Pork [[place] Thyroid] 180 mg ORAL DAILY 03/26/14 08/23/18 Zolpidem Tartrate [Ambien] 10 mg ORAL QPM PRN 03/26/14 08/23/18 Simvastatin 20 mg QPM 08/15/14 08/23/18 Cetirizine [ZyrTEC] 10 mg PO DAILY #20 tablet 02/10/17 08/23/18 buPROPion [Wellbutrin Sr] 150 mg PO DAILY 09/22/17 08/23/18 Ketotifen Fumarate [Zaditor] 1 drops EACHEYE Q8H PRN #1 drops 04/26/18 08/23/18 Naproxen 500 mg PO BID #20 tablet 08/23/18 Albuterol Sulf [Ventolin Hfa 1 - 2 puffs INH Q4HR PRN #1 inhaler 09/07/18 Inhaler] Azithromycin [Zithromax] 0 mg PO DAILY #6 tablet 09/07/18 Benzonatate [Tessalon Perle] 100 mg PO TID PRN #30 capsule 09/07/18 dexAMETHasone [Decadron] 4 mg PO DAILY #5 tablet 09/07/18 guaiFENesin/CODEINE [Robitussin AC] 10 ml PO Q6H PRN #240 ml 09/07/18 Hydrocodone/Acetaminophen 1 - 2 each PO Q6H PRN #14 tablet 10/14/18 [Hydrocodon-Acetaminophen 5-325] - Allergies Allergies/Adverse Reactions: Allergies Allergy/AdvReac Type Severity Reaction Status Date / Time diphenhydramine HCl * Allergy Anxiety Verified 01/21/19 17:40 [From Angelito] Review of Systems - Constitutional Constitutional: denies: Fatigue, Fever, Chills, Weakness - Eyes Eyes: denies: Pain, Blurred vision, Vision loss, Dipolpia - Ears, Nose & Throat Ears, Nose & Throat: denies: Vertigo, Nasal pain, Sore throat - Cardiovascular Cariovascular: reports: Lightheadedness. denies: Irregular heart rate, Chest pain, Edema - Respiratory Respiratory: denies: Cough, Sputum production, Wheezing, SOB at rest, SOB with exertion - Gastrointestinal Gastrointestinal: reports: Abdominal pain, Diarrhea, Nausea, Vomiting. denies: Rectal bleeding, Black stools, Mike blood emesis, Coffee grounds emesis, Reflux/heartburn - Genitourinary Genitourinary: denies: Dysuria, Frequency, Urgency, Hematuria - Musculoskeletal Musculoskeletal: denies: Muscle pain, Back pain, Muscle aches - Integumentary Integumentary: denies: Rash, Pruritis, Lesions, Dryness - Neurological Neurological: denies: General weakness, Focal weakness, Dizziness - Psychiatric Psychiatric: reports: Depression, Anxiety - Endocrine Endocrine: denies: Polyuria, Polydypsia - Hematologic/Lymphatic Hematologic/Lymphatic: denies: Anemia, Bruising, Petechiae Prior Level of Functionality: Patient is independent of activities of daily living Exam - Vital Signs Vital Signs: Vital Signs x48h Temp Pulse Resp BP Pulse Ox 01/21/19 23:10 37.0 C 96 12 137/76 H 98 01/21/19 21:00 93 17 135/72 H 98 01/21/19 19:26 89 16 125/79 100 01/21/19 17:40 85 22 105/73 100 - Physical Exam General Appearance: positive: Alert, Moderate distress, Severe distress. negative: Lethargic Eyes Bilateral: positive: Normal inspection, PERRL, EOMI ENT: positive: ENT inspection nml, Pharynx nml Neck: positive: Nml inspection, No JVD, Trachea midline Respiratory: positive: Chest non-tender, No respiratory distress, Breath sounds nml. negative: Wheezes, Rales, Rhonchi Cardiovascular: positive: Regular rate & rhythm, No murmur Abdomen: positive: Nml bowel sounds, Tenderness. negative: Hepatomegaly, Splenomegaly Back: positive: Nml inspection Skin: positive: Color nml, No rash, Warm, Dry, Other (tatoos on her right lower extremity) Extremities: positive: Non-tender, Full ROM, Nml appearance, No pedal edema Neurologic/Psychiatric: positive: Oriented x3, CN's nml (2-12), Motor nml, Sensation nml, Mood/affect nml Conclusion/Plan - Problem List (1) Gastroenteritis and colitis, toxic Conclusion/Plan: Given the rapid onset after eating (4hrs) It is likely the patient's symptoms are due to pre-formed toxen on the food she ate. Most common bacteria is Bacillus cereus. Treatment will be supportive with IV hydration only to prevent dehydration. We will not give any anti-emetics or anti-diarrhea meds. NPO except for meds, sips and ice chips Pain management. Check lactic acid (2) Leukocytosis Conclusion/Plan: Likely reactive Will monitor and recheck with morning labs (3) Hypertension Conclusion/Plan: Will resume lisinopril when able to tolerate (4) Hyperlipidemia Conclusion/Plan: On simvastatin. Will resume when appropriate (5) Hypothyroidism Conclusion/Plan: Patient takes Amour Thyroid (6) Depression Conclusion/Plan: On celexa and wellbutrin (7) Anxiety Conclusion/Plan: On xanax - Lab Results Fish Bones: 01/21/19 18:10 01/21/19 18:10 Core Measures - Anticipated LOS I expect patient to be DC'd or transferred within 96 hours.: Yes - DVT/VTE - Prophylaxis VTE/DVT Device ordered at admit?: Yes VTE/DVT Prophylaxis med ordered at admit?: Yes
[2019-01-22] MEDS: SODIUM CHLORIDE 0.9% 1,000 ML IV SCH ×3 (00:40→17:02)
[2019-01-22] MEDS ORDERED: SODIUM CHLORIDE FLUSH 0.9% 10 ML SYRINGE ONE (00:43)
[2019-01-22] MEDS ORDERED: ALPRAZolam 0.25 MG TABLET PO PRN (01:02)
[2019-01-22] MEDS: CITALOPRAM HYDROBROMIDE 20 MG TABLET PO SCH ×2 (01:25→21:14)
[2019-01-22] MEDS: HYDROmorphone 0.5 MG/0.5 ML SYRINGE IVP PRN ×8 (01:25→21:14)
[2019-01-22] MEDS: ZOLPIDEM 5 MG TABLET PO PRN ×2 (01:25→22:48)
[2019-01-22] MEDS: SODIUM CHLORIDE FLUSH 0.9% 10 ML SYRINGE IVP SCH ×3 (01:26→16:01)
[2019-01-22 05:53] LABS: BASOPHILS % (AUTO) 0.3 %; EOSINOPHILS % (AUTO) 0.1 %; HGB - HEMOGLOBIN 10.5 g/dL (12.0-16.0); LYMPHOCYTES % (AUTO) 12.6 %; MEAN CORPUSCULAR HEMOGLOBIN 29.1 pg (27.0-31.0); MEAN CORPUSCULAR HGB CONC 30.7 g/dL (32.0-36.0); MEAN CORPUSCULAR VOLUME 94.7 fL (81.0-99.0); MEAN PLATELET VOLUME 9.6 fL (7.9-10.8); MONOCYTES % (AUTO) 6.6 %; NEUTROPHILS # (AUTO) 12.5 10^3/uL (1.5-6.6); NEUTROPHILS % (AUTO) 79.6 %; PLT - PLATELET COUNT 222 10^3/uL (130-450); RED BLOOD COUNT 3.61 10^6/uL (4.20-5.40); RED CELL DISTRIBUTION WIDTH 13.1 % (12.0-15.0); WHITE BLOOD COUNT 15.7 x10^3/uL (4.8-10.8)
[2019-01-22 06:01] LABS: CALCIUM 8.2 mg/dL (8.5-10.3); CREATININE 1.1 mg/dL (0.4-1.0)
[2019-01-22] MEDS ORDERED: PROCHLORPERAZINE 10 MG/2 ML VIAL IVP PRN (08:11)
[2019-01-22] MEDS ORDERED: POLYETHYLENE GLYCOL 3350 17 GM PACKET PO SCH (09:00)
[2019-01-22] MEDS: ONDANSETRON 4 MG/2 ML VIAL IVP PRN ×4 (09:14→22:48)
[2019-01-22 15:24] LABS: HGB - HEMOGLOBIN 10.9 g/dL (12.0-16.0)
[2019-01-22] MEDS ORDERED: ALBUTEROL NEB 2.5 MG/3 ML INH PRN (15:42)
[2019-01-22] MEDS: SODIUM CHLORIDE FLUSH 0.9% 10 ML SYRINGE IVP PRN (21:14)
[2019-01-23] MEDS: SODIUM CHLORIDE FLUSH 0.9% 10 ML SYRINGE IVP SCH ×3 (01:10→18:03)
[2019-01-23] MEDS: SODIUM CHLORIDE 0.9% 1,000 ML IV SCH ×2 (01:16→08:33)
[2019-01-23] MEDS: HYDROmorphone 0.5 MG/0.5 ML SYRINGE IVP PRN ×4 (01:16→14:48)
[2019-01-23] MEDS ORDERED: ACETAMINOPHEN 325 MG TABLET PO PRN (03:39)
[2019-01-23 06:19] LABS: BASOPHILS % (AUTO) 0.2 %; EOSINOPHILS # (AUTO) 0.1 10^3/uL (0.0-0.7); EOSINOPHILS % (AUTO) 0.4 %; HGB - HEMOGLOBIN 10.2 g/dL (12.0-16.0); LYMPHOCYTES # (AUTO) 2.2 10^3/uL (1.5-3.5); MEAN CORPUSCULAR HEMOGLOBIN 29.7 pg (27.0-31.0); MEAN CORPUSCULAR VOLUME 95.6 fL (81.0-99.0); MEAN PLATELET VOLUME 9.8 fL (7.9-10.8); MONOCYTES # (AUTO) 0.8 10^3/uL (0.0-1.0); MONOCYTES % (AUTO) 5.9 %; NEUTROPHILS # (AUTO) 10.5 10^3/uL (1.5-6.6); NEUTROPHILS % (AUTO) 76.8 %; PLT - PLATELET COUNT 217 10^3/uL (130-450); RED BLOOD COUNT 3.44 10^6/uL (4.20-5.40); RED CELL DISTRIBUTION WIDTH 13.2 % (12.0-15.0); WHITE BLOOD COUNT 13.7 x10^3/uL (4.8-10.8)
[2019-01-23 06:24] LABS: CALCIUM 8.2 mg/dL (8.5-10.3); CREATININE 0.8 mg/dL (0.4-1.0)
[2019-01-23] MEDS: ONDANSETRON 4 MG/2 ML VIAL IVP PRN (08:33)
[2019-01-23 08:44] LABS: VBG BASE EXCESS -8.3 mmol/L (-2 - +2); VBG PH 7.34 (7.31-7.41); VBG PO2 43.5 mmHg (25-47); VBG TOTAL CO2 17.3 mmol/L (24-29)
--- NOTE | 2019-01-23 10:28 | PROVIDER PROGRESS NOTE ---
Subjective - Prog Note Date Prog Note Date: 01/23/19 Prog Note Time: 10:38 - Subjective Pt reports feeling: No change Subjective: she continues to have colicky pain that is waxing, waning and severe. No fever. Stool is liquid, watery and tinged with blood. Miserable. Repeat ROS tells me that she was super exhausted the weekend before she got sick but was eating normally, and no boughts of low BP has high BP and takes lisinopril), no hx of valvular heart disease. Take vitamin supplements but no diet stimulants. Current Medications - Current Medications Current Medications: Active Medications Acetaminophen (Tylenol) 650 mg PO Q4HR PRN PRN Reason: Pain or Fever > 38C (100.4F) Albuterol () 2.5 mg INH RTQ4H PRN PRN Reason: Wheezing Alprazolam (Xanax) 0.5 mg PO BID PRN PRN Reason: Anxiety Citalopram Hydrobromide (Celexa) 40 mg PO QPM [facility] Last Admin: 01/22/19 21:14 Dose: 40 mg Hydromorphone HCl (Dilaudid Inj Syringe) 0.5 mg IVP Q4H PRN PRN Reason: PAIN Last Admin: 01/23/19 10:13 Dose: 0.5 mg Lactated Ringer's (Lr) 1,000 mls @ 200 mls/hr IV .Q5H [facility] Ondansetron HCl (Zofran Inj) 4 mg IVP Q4HR PRN PRN Reason: Nausea / Vomiting Last Admin: 01/23/19 08:33 Dose: 4 mg Prochlorperazine Edisylate (Compazine Inj) 10 mg IVP Q4HR PRN PRN Reason: Nausea / Vomiting Sodium Chloride (Normal Saline Flush 0.9%) 10 ml IVP PRN PRN PRN Reason: NEEDED PER PROVIDER ORDERS Last Admin: 01/22/19 21:14 Dose: 10 ml Sodium Chloride (Normal Saline Flush 0.9%) 10 ml IVP 0100,0900,1700 [facility] Last Admin: 01/23/19 08:34 Dose: 10 ml Zolpidem Tartrate (Ambien) 10 mg PO QPM PRN PRN Reason: Insomnia Last Admin: 01/22/19 22:48 Dose: 10 mg Alprazolam [Xanax] 0.5 mg PO DAILY PRN 03/26/14 Citalopram Hydrobromide [Celexa] 40 mg PO DAILY 03/26/14 Lisinopril 20 mg PO DAILY 03/26/14 Thyroid,Pork [[place] Thyroid] 90 mg PO BID 03/26/14 Zolpidem Tartrate [Ambien] 10 mg PO QPM PRN 03/26/14 Simvastatin 20 mg PO QPM 08/15/14 buPROPion [Wellbutrin Sr] 450 mg PO DAILY 09/22/17 Objective - Vital Signs/Intake & Output Reviewed Vital Signs: Yes Vital Signs: Vital Signs x48h Temp Pulse Pulse Resp BP Pulse Ox 01/23/19 08:00 37.1 C 99 19 139/70 H 97 01/23/19 07:30 98 16 01/23/19 04:07 36.9 C 99 16 126/65 97 Intake & Output: Intake & Output 01/20/19 01/21/19 01/22/19 01/23/19 23:59 23:59 23:59 23:59 Intake Total 1000 2790.0 1910.417 Balance 1000 2790.0 1910.417 - Objective General Appearance: positive: Alert, Moderate distress (from crampy pain, and on dilaudid. We had to reduce frequency since she was sedated and confused overnight.) Eyes Bilateral: positive: PERRL, EOMI ENT: positive: Pharynx nml Neck: positive: No JVD. negative: Stiff neck, Carotid bruit Respiratory: positive: Chest non-tender. negative: Wheezes, Rales, Rhonchi Cardiovascular: positive: Regular rate & rhythm. negative: Systolic murmur, Gallop/S4, Friction rub Abdomen: positive: Tenderness (diffusely), Other (hyperactive bowels). negative: Guarding, Rebound Skin: positive: Warm, Dry Extremities: positive: Full ROM, No pedal edema Neurologic/Psychiatric: positive: Oriented x3, CN's nml (2-12), Motor nml, Sensation nml - Lab Results Fish Bones: 01/23/19 05:42 01/23/19 05:42 Other Labs: Lab Results x24hrs 01/23/19 01/23/19 01/23/19 Range/Units 08:14 05:42 05:42 WBC 13.7 H (4.8-10.8) x10^3/uL RBC 3.44 L (4.20-5.40) 10^6/uL Hgb 10.2 L (12.0-16.0) g/dL Hct 32.9 L (37.0-47.0) % MCV 95.6 (81.0-99.0) fL MCH 29.7 (27.0-31.0) pg MCHC 31.0 L (32.0-36.0) g/dL RDW 13.2 (12.0-15.0) % Plt Count 217 (130-450) 10^3/uL MPV 9.8 (7.9-10.8) fL Neut # (Auto) 10.5 H (1.5-6.6) 10^3/uL Lymph # (Auto) 2.2 (1.5-3.5) 10^3/uL Edmunds # (Auto) 0.8 (0.0-1.0) 10^3/uL Eos # (Auto) 0.1 (0.0-0.7) 10^3/uL Baso # (Auto) 0.0 (0.0-0.1) 10^3/uL Absolute Nucleated RBC 0.00 x10^3/uL Nucleated RBC % 0.0 /100WBC VBG pH 7.340 (7.31-7.41) VBG pCO2 31.0 L (41-51) mmHg VBG pO2 43.5 (25-47) mmHg VBG HCO3 16.3 L (23-28) mmol/L VBG Total CO2 17.3 L (24-29) mmol/L VBG O2 Saturation 81.3 H (60-80) % VBG Base Excess -8.3 L (-2 - +2) mmol/L Sodium 137 (135-145) mmol/L Potassium 3.8 (3.5-5.0) mmol/L Chloride 113 H (101-111) mmol/L Carbon Dioxide 18 L (21-32) mmol/L Anion Gap 6.0 (6-13) BUN 13 (6-20) mg/dL Creatinine 0.8 (0.4-1.0) mg/dL Estimated GFR (MDRD) 75 L (>89) Glucose 74 (70-100) mg/dL Calcium 8.2 L (8.5-10.3) mg/dL 01/22/19 Range/Units 15:20 WBC (4.8-10.8) x10^3/uL RBC (4.20-5.40) 10^6/uL Hgb 10.9 L (12.0-16.0) g/dL Hct 34.3 L (37.0-47.0) % MCV (81.0-99.0) fL MCH (27.0-31.0) pg MCHC (32.0-36.0) g/dL RDW (12.0-15.0) % Plt Count (130-450) 10^3/uL MPV (7.9-10.8) fL Neut # (Auto) (1.5-6.6) 10^3/uL Lymph # (Auto) (1.5-3.5) 10^3/uL Edmunds # (Auto) (0.0-1.0) 10^3/uL Eos # (Auto) (0.0-0.7) 10^3/uL Baso # (Auto) (0.0-0.1) 10^3/uL Absolute Nucleated RBC x10^3/uL Nucleated RBC % /100WBC VBG pH (7.31-7.41) VBG pCO2 (41-51) mmHg VBG pO2 (25-47) mmHg VBG HCO3 (23-28) mmol/L VBG Total CO2 (24-29) mmol/L VBG O2 Saturation (60-80) % VBG Base Excess (-2 - +2) mmol/L Sodium (135-145) mmol/L Potassium (3.5-5.0) mmol/L Chloride (101-111) mmol/L Carbon Dioxide (21-32) mmol/L Anion Gap (6-13) BUN (6-20) mg/dL Creatinine (0.4-1.0) mg/dL Estimated GFR (MDRD) (>89) Glucose (70-100) mg/dL Calcium (8.5-10.3) mg/dL ABX Reporting Has patient been on IV antibiotics over the past 48 hours?: No Assessment/Plan - Problem List (1) Gastroenteritis and colitis, toxic Impression: Given the rapid onset after eating (4hrs) but has now lasted >24 hours. lactic acid negative but she has a metabolic acidosis on venous pH and BMP. It is likely the patient's symptoms are due to pre-formed toxin on the food she ate. Most common bacteria is Bacillus cereus. We have checked stool cultures and her shigella toxin neg, campy neg, salmonella pending. Treatment will be supportive with IV hydration only to prevent dehydration to continue We will not give any anti-diarrhea meds but I did give antiemetics since she was miserable. NPO except for meds, sips and ice chips Pain management to continue Change NS to LR from 125 cc/hr to 200/hr Since her pain is out of proportion to exam and cause, I will check CTA of abd and pelvis. She has no low outflow state to cause this but she is not improved from yesterday. (2) Leukocytosis Conclusion/Plan: Likely reactive Will monitor and recheck with morning labs: 17.4>15.7>13.7 today (3) Hypertension Conclusion/Plan: Systolic is 119-141, usually below 130. Will resume lisinopril when able to tolerate (4) Hyperlipidemia Conclusion/Plan: On simvastatin. Will resume when appropriate (5) Hypothyroidism Conclusion/Plan: Patient takes Amour Thyroid (6) Depression Conclusion/Plan: On celexa and wellbutrin (7) Anxiety Conclusion/Plan: On xanax
[2019-01-23] MEDS ORDERED: IOVERSOL 320 100 ML VIAL IVP ONE ×2 (10:46→15:07)
[2019-01-23] MEDS: LACTATED RINGERS 1,000 ML IV SCH ×3 (11:13→21:22)
--- NOTE | 2019-01-23 13:43 | CT Report ---
Reason: severe abd pain, bloody diarrhea Procedure Date: 01/23/2019 Accession Number: [id number] / [id number] Procedure: CT - ANGIO ABDOMEN/PELVIS W CPT Code: FULL RESULT: EXAM: CT ANGIOGRAM ABDOMEN AND PELVIS WITH CONTRAST EXAM DATE: 01/23/2019 12:03 PM. CLINICAL HISTORY: Abdominal pain. Bloody diarrhea. COMPARISONS: ABDOMEN/PELVIS W/ 01/21/2019 9:44 PM. TECHNIQUE: Routine helical CT angiogram imaging was performed through the abdomen and pelvis in the arterial phase. IV contrast: 100 mL Optiray 320. Enteric contrast: No. Reconstructions: Coronal, sagittal, and 3D MIP reconstructions. In accordance with CT protocol optimization, one or more of the following dose reduction techniques were utilized for this exam: automated exposure control, adjustment of mA and/or KV based on patient size, or use of iterative reconstructive technique. FINDINGS: Vasculature: Normal caliber abdominal aorta demonstrates mild calcified atherosclerotic disease distally. There is no dissection, aneurysm, or other significant vascular pathology. The mesenteric vasculature is diffusely patent. The renal arterial vasculature is relatively patent demonstrating duplicated anatomy on the right. Visualized iliac and femoral arterial vasculature are diffusely intact. Lung Bases: New right pleural effusion and atelectasis is seen. Abdominal Solid Organs: Arterial phase imaging of the solid organs is notable for a 12 mm hypervascular focus in segment 5 (image 53/4). Minor cortical scarring versus prominent lobulations is seen in the kidneys. Spleen, adrenal glands, pancreas, gallbladder, and bile ducts are unremarkable. Peritoneal Cavity: Moderate inflammatory changes are again seen involving the descending colon. Overall, inflammatory changes and wall thickening appears slightly worse compared with prior study. Trace free fluid is seen along the left paracolic gutter. There is no free air or abscess. There is no obstruction or ileus. There is no adenopathy. Pelvic Organs: Moderate free fluid is seen in the pelvis, new. Small free fluid in the right lower quadrant region is also seen. Uterus and adnexa are otherwise unremarkable. Bones: No significant abnormality. Other: None. IMPRESSION: 1. Mildly worsening colitis involving the descending colon. New mild free fluid is seen mostly in the dependent pelvis. No free air or abscess. 2. Diffusely patent mesenteric vasculature with no evidence to suggest mesenteric ischemia. 3. New trace right pleural effusion and atelectasis. RADIA
[2019-01-23] MEDS: HYDROmorphone 1 MG/ML CARPUJECT IVP PRN ×2 (19:08→22:58)
[2019-01-23] MEDS: CIPROFLOXACIN 200 MG/100 ML 100 ML IV SCH (19:09)
[2019-01-23] MEDS: metroNIDAZOLE 500 MG/100 ML 500 MG/100 ML BAG IV SCH (20:10)
[2019-01-23] MEDS: ZOLPIDEM 5 MG TABLET PO PRN (22:58)
[2019-01-23] MEDS: CITALOPRAM HYDROBROMIDE 20 MG TABLET PO SCH (22:58)
[2019-01-24] MEDS: SODIUM CHLORIDE FLUSH 0.9% 10 ML SYRINGE IVP SCH ×4 (00:04→23:52)
[2019-01-24] MEDS: LACTATED RINGERS 1,000 ML IV SCH ×4 (02:00→20:49)
[2019-01-24] MEDS: metroNIDAZOLE 500 MG/100 ML 500 MG/100 ML BAG IV SCH ×3 (05:43→23:10)
--- NOTE | 2019-01-24 07:45 | PROVIDER PROGRESS NOTE ---
Subjective - Prog Note Date Prog Note Date: 01/24/19 Prog Note Time: 17:16 - Subjective Pt reports feeling: No change Subjective: her main complaint is gen abd pain, 11/04 requring dilaudid but she is getting occ confused, slurred speech with its use. no more diarrhea since yesterday. no fever, no chills. tolerating clear liquids and i advanced to soft and she did well. called on phone and over her speaker phone, I discussed the case w him. Current Medications - Current Medications Current Medications: Active Medications Acetaminophen (Tylenol) 650 mg PO Q4HR PRN PRN Reason: Pain or Fever > 38C (100.4F) Last Admin: 01/23/19 19:09 Dose: 650 mg Albuterol () 2.5 mg INH RTQ4H PRN PRN Reason: Wheezing Alprazolam (Xanax) 0.5 mg PO BID PRN PRN Reason: Anxiety Citalopram Hydrobromide (Celexa) 40 mg PO QPM [facility] Last Admin: 01/23/19 22:58 Dose: 40 mg Hydromorphone HCl (Dilaudid Inj Carp) 1 mg IVP Q4H PRN PRN Reason: PAIN Last Admin: 01/24/19 13:53 Dose: 1 mg Lactated Ringer's (Lr) 1,000 mls @ 200 mls/hr IV .Q5H [facility] Last Infusion: 01/24/19 16:53 Dose: 200 mls/hr Ciprofloxacin (Cipro 200 Mg/100 Ml) 100 mls @ 100 mls/hr IV BID [facility] Last Infusion: 01/24/19 09:34 Dose: Infused Metronidazole (Flagyl 500 Mg/100 Ml) 500 mg in 100 mls @ 100 mls/hr IV TID [facility] Last Infusion: 01/24/19 15:59 Dose: Infused Ondansetron HCl (Zofran Inj) 4 mg IVP Q4HR PRN PRN Reason: Nausea / Vomiting Last Admin: 01/24/19 13:53 Dose: 4 mg Prochlorperazine Edisylate (Compazine Inj) 10 mg IVP Q4HR PRN PRN Reason: Nausea / Vomiting Sodium Chloride (Normal Saline Flush 0.9%) 10 ml IVP PRN PRN PRN Reason: NEEDED PER PROVIDER ORDERS Last Admin: 01/22/19 21:14 Dose: 10 ml Sodium Chloride (Normal Saline Flush 0.9%) 10 ml IVP 0100,0900,1700 [facility] Last Admin: 01/24/19 16:00 Dose: Not Given Zolpidem Tartrate (Ambien) 10 mg PO QPM PRN PRN Reason: Insomnia Last Admin: 01/23/19 22:58 Dose: 10 mg Alprazolam [Xanax] 0.5 mg PO DAILY PRN 03/26/14 Simvastatin 20 mg PO QPM 08/15/14 buPROPion [Wellbutrin Sr] 450 mg PO DAILY 09/22/17 Citalopram Hydrobromide [Citalopram HBr] 40 mg PO DAILY 01/23/19 Levonorgestrel-Ethin Estradiol [Marlissa-28 Tablet] 1 tab PO DAILY 01/23/19 Lisinopril 20 mg PO DAILY 01/23/19 Phentermine HCl [Adipex-P] 37.5 mg PO DAILY 01/23/19 Thyroid,Pork [[place] Thyroid] 90 mg PO BID 01/23/19 Zolpidem Tartrate [Ambien] 10 mg PO QPM PRN 01/23/19 Objective - Vital Signs/Intake & Output Reviewed Vital Signs: Yes Vital Signs: Vital Signs x48h Temp Pulse Resp BP Pulse Ox 01/24/19 05:00 37.3 C 94 14 130/73 94 01/23/19 23:46 36.9 C 85 16 118/64 95 Intake & Output: Intake & Output 01/21/19 01/22/19 01/23/19 01/24/19 23:59 23:59 23:59 23:59 Intake Total 1000 2790.0 4522.917 1856.667 Output Total 50 Balance 1000 2790.0 4472.917 1856.667 - Objective General Appearance: positive: No acute distress (but the waves of pain will hit and really hurts she says), Alert Eyes Bilateral: positive: PERRL ENT: positive: Pharynx nml Neck: positive: No JVD Respiratory: positive: Chest non-tender, No respiratory distress. negative: Wheezes, Rales, Rhonchi Cardiovascular: positive: Regular rate & rhythm. negative: Systolic murmur, Gallop/S4 Abdomen: positive: Nml bowel sounds, No distention, Tenderness. negative: Guarding, Rebound Skin: positive: Warm, Dry Extremities: positive: Non-tender, No pedal edema Neurologic/Psychiatric: positive: Oriented x3, CN's nml (2-12), Motor nml - Lab Results Fish Bones: 01/24/19 09:15 01/24/19 09:15 Other Labs: Lab Results x24hrs 01/23/19 Range/Units 08:14 VBG pH 7.340 (7.31-7.41) VBG pCO2 31.0 L (41-51) mmHg VBG pO2 43.5 (25-47) mmHg VBG HCO3 16.3 L (23-28) mmol/L VBG Total CO2 17.3 L (24-29) mmol/L VBG O2 Saturation 81.3 H (60-80) % VBG Base Excess -8.3 L (-2 - +2) mmol/L ABX Reporting Has patient been on IV antibiotics over the past 48 hours?: Yes Assessment/Plan - Problem List (1) Gastroenteritis and colitis, toxic Impression: Given the rapid onset after eating (4hrs) but has now lasted >72 hours. lactic acid negative but she has a metabolic acidosis on venous pH and BMP. It is likely the patient's symptoms are due to pre-formed toxin on the food she ate. Most common bacteria is Bacillus cereus. I have thought about other infectious diarrhea as well as C dif, Inflammatory bowel disease, ischemic bowel disease. We have checked stool cultures and her shigella toxin neg, campy neg, salmonella pending. E coli and C dif pending. We may not get the last two since her diarrhea has stopped. Just continues w pain. CT angio has been negative but her bowel wall thickening with pelvic fluid worse on 2nd CT than 1st CT abd. Treatment is supportive with IV hydration only to prevent dehydration to continue and I did start antibiotics with cipro and flagyl since her WBC continued to be elevated and CT was worse. Day #2. WBC is now normal. No d iarrhea. We will not give any anti-diarrhea meds but I did give antiemetics since she was miserable. Started on clear liquids and doing well with that so I advance to low fiber diet. Pain management to continue and I had to increase from 0.5 to 1 mg q4 hr prn to control pain Changed NS to LR from 125 cc/hr to 200/hr (2) Leukocytosis resolved now on abx. Conclusion/Plan: Likely reactive Will monitor and recheck with morning labs: 17.4>15.7>13.7>9.3 today (3) Hypertension Conclusion/Plan: Systolic is 118-150 Will resume lisinopril (4) Hyperlipidemia Conclusion/Plan: On simvastatin. Will resume when appropriate (5) Hypothyroidism Conclusion/Plan: Patient takes Amour Thyroid and will resume (6) Depression Conclusion/Plan: On celexa and wellbutrin and will resume (7) Anxiety Conclusion/Plan: On xanax, already on it. (8) Hypokalemia. Supplement po
[2019-01-24] MEDS: CIPROFLOXACIN 200 MG/100 ML 100 ML IV SCH ×2 (08:22→21:50)
[2019-01-24] MEDS: HYDROmorphone 1 MG/ML CARPUJECT IVP PRN ×4 (08:23→23:52)
[2019-01-24] MEDS: ONDANSETRON 4 MG/2 ML VIAL IVP PRN ×2 (08:23→13:53)
[2019-01-24 09:25] LABS: BASOPHILS % (AUTO) 0.2 %; EOSINOPHILS # (AUTO) 0.1 10^3/uL (0.0-0.7); HGB - HEMOGLOBIN 9.8 g/dL (12.0-16.0); LYMPHOCYTES # (AUTO) 1.4 10^3/uL (1.5-3.5); LYMPHOCYTES % (AUTO) 15.1 %; MEAN CORPUSCULAR HEMOGLOBIN 30.4 pg (27.0-31.0); MEAN CORPUSCULAR HGB CONC 32.5 g/dL (32.0-36.0); MEAN CORPUSCULAR VOLUME 93.8 fL (81.0-99.0); MEAN PLATELET VOLUME 9.2 fL (7.9-10.8); MONOCYTES # (AUTO) 0.7 10^3/uL (0.0-1.0); MONOCYTES % (AUTO) 7.1 %; PLT - PLATELET COUNT 203 10^3/uL (130-450); RED BLOOD COUNT 3.22 10^6/uL (4.20-5.40); WHITE BLOOD COUNT 9.3 x10^3/uL (4.8-10.8)
[2019-01-24 09:44] LABS: CALCIUM 8.2 mg/dL (8.5-10.3); CREATININE 0.7 mg/dL (0.4-1.0)
[2019-01-24] MEDS ORDERED: POTASSIUM CHLORIDE 20 MEQ TABLET PO ONE (13:45)
[2019-01-24] MEDS ORDERED: ZOLPIDEM 5 MG TABLET PO PRN (19:22)
[2019-01-24] MEDS: CITALOPRAM HYDROBROMIDE 20 MG TABLET PO SCH (20:48)
[2019-01-24] MEDS: THYROID 60 MG TABLET PO SCH (20:52)
--- NOTE | 2019-01-24 21:52 | XRAY Report ---
Reason: Cough. Hypoxia. Procedure Date: 01/24/2019 Accession Number: [id number] / [id number] Procedure: XR - Chest 1 View X-Ray CPT Code: 54501 FULL RESULT: EXAM: CHEST RADIOGRAPHY EXAM DATE: 01/24/2019 09:30 PM. CLINICAL HISTORY: Cough. Hypoxia. COMPARISON: CHEST 2 VIEW PA/LAT 05/14/2016 8:45 PM. TECHNIQUE: 1 view. FINDINGS: Lungs/Pleura: Mild patchy medial right base haziness, otherwise no focal opacities evident. No pleural effusion. No pneumothorax. Mediastinum: Within exam limitations, the cardiomediastinal contour is normal. Other: None. IMPRESSION: Patchy medial right base haziness concerning for acute infiltrate. RAD[facility]
[2019-01-24] MEDS ORDERED: FUROSEMIDE 20 MG/2 ML VIAL IVP STA (22:30)
[2019-01-24] MEDS: ZOLPIDEM 5 MG TABLET PO PRN (23:05)
[2019-01-24] MEDS: SODIUM CHLORIDE FLUSH 0.9% 10 ML SYRINGE IVP PRN (23:05)
[2019-01-25 05:37] LABS: BASOPHILS % (AUTO) 0.3 %; EOSINOPHILS # (AUTO) 0.2 10^3/uL (0.0-0.7); EOSINOPHILS % (AUTO) 1.8 %; LYMPHOCYTES # (AUTO) 2.1 10^3/uL (1.5-3.5); MEAN CORPUSCULAR HEMOGLOBIN 30.5 pg (27.0-31.0); MEAN CORPUSCULAR VOLUME 92.4 fL (81.0-99.0); MEAN PLATELET VOLUME 9.3 fL (7.9-10.8); MONOCYTES # (AUTO) 0.6 10^3/uL (0.0-1.0); MONOCYTES % (AUTO) 6.6 %; NEUTROPHILS # (AUTO) 6.1 10^3/uL (1.5-6.6); PLT - PLATELET COUNT 226 10^3/uL (130-450); RED BLOOD COUNT 3.28 10^6/uL (4.20-5.40); RED CELL DISTRIBUTION WIDTH 12.9 % (12.0-15.0); WHITE BLOOD COUNT 8.9 x10^3/uL (4.8-10.8)
[2019-01-25 05:40] LABS: CALCIUM 8.1 mg/dL (8.5-10.3); CREATININE 0.8 mg/dL (0.4-1.0)
[2019-01-25] MEDS ORDERED: POTASSIUM CHLORIDE 20 MEQ TABLET PO STA (06:48)
[2019-01-25] MEDS ORDERED: metroNIDAZOLE 500 MG/100 ML 500 MG/100 ML BAG IV SCH (08:00)
[2019-01-25] MEDS: THYROID 60 MG TABLET PO SCH (08:25)
[2019-01-25] MEDS: SODIUM CHLORIDE FLUSH 0.9% 10 ML SYRINGE IVP SCH (08:26)
[2019-01-25] MEDS ORDERED: LISINOPRIL 20 MG TABLET PO SCH (09:00)
[2019-01-25] MEDS ORDERED: buPROPion SR 150 MG TABLET PO SCH (09:00)
[2019-01-25] MEDS ORDERED: CETIRIZINE 10 MG TABLET PO SCH (09:00)
[2019-01-25] MEDS: CIPROFLOXACIN 200 MG/100 ML 100 ML IV SCH (09:38)
[2019-01-25] MEDS: oxyCODONE 5 MG TABLET PO PRN ×2 (11:02→14:58)
[2019-01-25] MEDS: ONDANSETRON 4 MG/2 ML VIAL IVP PRN (14:08)
--- NOTE | 2019-01-25 15:39 | Discharge Plan ---
Discharge Plan Problem Reviewed?: Yes Disposition: Home, Self Care Condition: Good Prescriptions: oxyCODONE [Roxicodone] 5 mg PO Q4HR PRN #30 tablet PRN Reason: Pain Ciprofloxacin HCl [Cipro] 500 mg PO BID #14 tablet Metronidazole [Flagyl] 500 mg PO TID #21 tablet Diet: Soft (low fiber (no fruits or vegetables for a week). Aim for bland diet.) Activity Restrictions: No Restrictions Shower Restrictions: No Driving Restrictions: Yes (no driving for 4 hours after oxycodone) Instruction Topics: Metronidazole injection, Ciprofloxacin injection Health Concerns: You came to our emergency room with severe abdominal pain, vomiting and diarrhea. It was attributable to eating some food 4 hours previously. Cultures have been negative for Salmonella, Shigella, Yersinia, Campylobacter, E. coli 0157, Edwardsiella, C. Difficile, or vibrio. All of these can cause severe, infectious diarrhea with blood. We initially waited to make sure that your cultures did not prevent you from using certain antibiotics. We then placed you on ciprofloxacin and Flagyl and your body responded by having a white cell count that was 17,000 go down to normal at 8,000. CT scans of the abdomen were done. Both show an inflamed left distal colon. There are no masses, free air. The arteries of your abdomen were also examined and your arteries have no blockages. The other causes of inflamed colon with bloody diarrhea are inflammatory bowel disease or ischemic bowel disease and we found no evidence of either. You were initially given no food or liquids then advanced to clear liquids then soft diet and are tolerating that without vomitting. You had 2 more loose stools today but no blood was seen. Plan of Treatment: 1. Complete antibiotic therapy with ciprofloxacin and Flagyl in pill form. You will need to take 7 more days. 2. Take a probiotic, hawm-pec-ueckfec pill, for the next 7 days 3. Follow-up with your primary care provider in [place] as soon as possible. Once the inflammation in your colon is down, he will need to refer you for a colonoscopy with biopsy. 4. Please eat a bland, low fiber diet. Avoid fresh fruits and vegetables since those are high in fiber. [place] low fiber foods such as rice, applesauce, tea, bananas, mashed potatoes, soups, are all acceptable. Care Goals: 1. to be pain free and eating normally Assessment: patient expresses understanding of treatment and goals No Smoking: If you smoke, Please STOP! Call for help.
[2019-01-25 16:08] VITALS: BP 134/92
--- NOTE | 2019-01-25 18:28 | DISCHARGE SUMMARY ---
"Discharge Summary Admit Date: 01/21/19 Discharge Date: 01/25/19 Discharging Provider: Hoa Rosas MD Primary Care Provider: no pcp Code Status: Attempt Resuscitation Condition at Discharge: Good Discharge Disposition: 01 Home, Self Care - DIAGNOSES Discharge Diagnoses with Status of Each Condition: 1. toxic gastroenteritis and colitis 2. hypertension 3. Hyperlipidemia 4. Hypothyroid 5. Depression and anxiety 6. hypokalemia 7. Generalized abd pain - HPI History of Present Illness: Patient is a 53 y/o who presented to the ED to via EMS with severe abdominal pain, vomiting and diarrhea. Her symptoms started about 4 hours after eating left over [place] food for lunch. Her pain was so severe that it caused her to double over. She called EMS, and was administered fentanyl in route. Since arriving she has been given zofran and dilaudid. She had several episodes of vomiting and diarrhea in the ED despite treatment. Her abdomen is still very tender to palpation. Work up included a CT of the abdomen/pelvis which showed possible changes of colitis with minimal wall thickening in the descending colon. There was also a moderate amount of fluid throughout the colon. She also had a WBC of 17. As a result of her persistent symptoms and the findings seen above she is being admitted for further treatment. At bedside she still complains of significant abdominal pain. She denies chest pain, dyspnea, fever or chills. 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 Abdomen and pelvis CT with possible changes of colitis. Very slight wall thickening and enhancement of the descending colon. Moderate amount of fluid within the colon. 2. Abdomen pelvis CT angiogram with mesenteric vasculature diffusely patent. Renal arterial vasculature relatively pain. Duplicated anatomy on the right. Moderate inflammatory changes again seen involving the descending colon. Overall the inflammatory changes and wall thickening appears slightly worse when compared to prior study. No free air or abscess. No obstruction or ileus. Moderate fluid fluid seen in the pelvis that is new. 2. Chest x-ray showed patchy medial right base haziness concerning for acute infiltrate. - HOSPITAL COURSE Hospital Course: Given the rapid onset after eating (4hrs) as well as a metabolic acidosis we initially thought of a pre-formed toxin on the food she ate. Most common bacteria is Bacillus cereus. I have thought about other infectious diarrheas as well as C dif, Inflammatory bowel disease, and ischemic bowel disease. We have checked stool cultures and her shigella toxin, campylobacter, salmonella, E coli, C. Dif, etc were all negative. She did have FOBT (+) stool. Diarrhea was occasionally bloody and did stop but she had more liquid stool when diet was advanced. Her main problem was continued abd pain that required dilaudid on a fixed schedule. CT angio has been negative but her bowel wall thickening with pelvic fluid worse on 2nd CT than 1st CT abd. Treatment was supportive with IV hydration to prevent dehydration and I did start antibiotics with cipro and flagyl since her WBC continued to be elevated and CT was worse. The next day WBC was now normal. She was tearful and stressed at times with high anxiety. Frequent reassurance given. At times she had slurred speech, confusion from use of opiates and we did try to reduce dose. She still had abd pain at discharge, eating a full diet without emesis, and able to ambulate without assistance. She really wanted to go home so sent with oral flagyl and cipro. To followup with her PCP and I strongly recommend colonscopy in a few weeks. Leukocytosis resolved. Hypertension was treated with her usual home meds. To resume stating in a few days. Continued on armour thyroid, celexa and wellbutrin. Potassium was low one day and supplemented. At discharge temperature was 36.9, pulse 98, blood pressure 132/92. Respirations 20. She was 91 to 100% on room air. Alert, well-nourished white female who looks stated age. No respiratory distress with clear lungs. Although CXR was concerning for infiltrate, no sounds on exam. Regular rate and rhythm. The abdomen was diffusely tender, more on the left side than the right side. Hyperactive bowel sounds. No guarding. No masses. Skin was warm, dry, good color. Extremities were without edema. Greater than 30 minutes was spent correlating discharge. I asked her to remain on a low fiber diet until abd pain resolved. - ALLERGIES Allergies/Adverse Reactions: Allergies Allergy/AdvReac Type Severity Reaction Status Date / Time diphenhydramine HCl * Allergy Anxiety Verified 01/21/19 17:40 [From Angelito] - MEDICATIONS Home Medications: Ambulatory Orders Medication Instructions Recorded Confirmed Alprazolam [Xanax] 0.5 mg PO DAILY PRN 03/26/14 01/22/19 Simvastatin 20 mg PO QPM 08/15/14 01/22/19 Cetirizine [ZyrTEC] 10 mg PO DAILY #20 tablet 02/10/17 01/22/19 buPROPion [Wellbutrin Sr] 450 mg PO DAILY 09/22/17 01/22/19 Albuterol Sulf [Ventolin Hfa 1 - 2 puffs INH Q4HR PRN #1 inhaler 09/07/18 01/22/19 Inhaler] Citalopram Hydrobromide 40 mg PO DAILY 01/23/19 01/23/19 [Citalopram HBr] Levonorgestrel-Ethin Estradiol 1 tab PO DAILY 01/23/19 01/23/19 [Marlissa-28 Tablet] Lisinopril 20 mg PO DAILY 01/23/19 01/23/19 Phentermine HCl [Adipex-P] 37.5 mg PO DAILY 01/23/19 01/23/19 Thyroid,Pork [[place] Thyroid] 90 mg PO BID 01/23/19 01/23/19 Zolpidem Tartrate [Ambien] 10 mg PO QPM PRN 01/23/19 01/23/19 Ciprofloxacin HCl [Cipro] 500 mg PO BID #14 tablet 01/25/19 Metronidazole [Flagyl] 500 mg PO TID #21 tablet 01/25/19 oxyCODONE [Roxicodone] 5 mg PO Q4HR PRN #30 tablet 01/25/19 - LABS Result Diagrams: 01/25/19 05:27 01/25/19 05:27"
== END 2019-01-25 16:37 | disposition home or self-care (01) | DRG 394 ==
LOC: EDUNIT# → ED 17:38 → MS2 23:22 → OBSVTOIN 01-23 18:54
PROVIDERS: ADMIT Internal Medicine; ATTEND Specialist
DX: K52.1 Toxic gastroenteritis and colitis (principal); E87.2 Acidosis; I10 Essential (primary) hypertension; E78.5 Hyperlipidemia, unspecified; E03.9 Hypothyroidism, unspecified; F32.9 Major depressive disorder, single episode, unspecified; F41.9 Anxiety disorder, unspecified; E87.6 Hypokalemia; Z79.51 Long term (current) use of inhaled steroids; Z79.52 Long term (current) use of systemic steroids; Z79.891 Long term (current) use of opiate analgesic
CPT/HCPCS: 36415; 71045; 74174; 74177; 80048; 80053; 82272; 82803; 83605; 83690; 85014; 85018; 85025; 87045; 87046; 87493; 93005; 96361; 96374; 96375; 96376; 99284; A9270; G0378; J1170; J7120; J8499; Q9967; 87081

== ENCOUNTER 2019-05-08 15:07 | Outpatient (CLI) | payer OTHER ==
--- NOTE | 2019-05-16 08:40 | Mammography Report ---
Reason: SELF REFERRING MAMMO Procedure Date: 05/08/2019 Accession Number: [id number] / [id number] Procedure: MGS - Screening Mammo Dig Bilat CPT Code: Final Report FULL RESULT: EXAM: Screening Mammo Dig Bilat DATE: 05/08/2019 3:31 PM CLINICAL HISTORY: Screening encounter. History of nulliparity. TECHNIQUE: (B) - Bilateral CC and MLO views were obtained. COMPARISON: 09/17/2016 and 06/12/2015. PARENCHYMAL PATTERN: (F) - The breast(s) demonstrate(s) diffuse fatty replacement. FINDINGS: Seen in the right breast on CC projection only is a questionable isodense developing asymmetry in the medial breast 7 cm from the nipple, not identified on lateral projection. Findings are clarified with spot views, ideally with tomography and potentially ultrasound. There are no suspicious masses, calcifications, or areas of distortion in the left breast. IMPRESSION: Incomplete examination. BI-RADS category 0. RECOMMENDATION: (ADDMU) - Additional views using both Mammography and Ultrasound recommended. Right breast. BI-RADS CATEGORY: (0) - Incomplete Examination - need additional evaluation. STANDARD QUALIFYING STATEMENTS: 1. This examination was reviewed with the aid of Computer-Aided Detection (CAD). 2. A negative or benign imaging report should not preclude biopsy if clinically suspicious findings are present. 3. Dense breasts may obscure an underlying neoplasm. 4. This examination was reviewed without the aid of 3D breast imaging (tomosynthesis).
== END 2019-05-08 15:08 | disposition home or self-care (01) ==
LOC: DI.S 15:07
DX: Z12.31 Encounter for screening mammogram for malignant neoplasm of breast (principal); R92.8 Other abnormal and inconclusive findings on diagnostic imaging of breast
CPT/HCPCS: 77067

== ENCOUNTER 2019-09-27 06:39 | Day surgery (SDC) | payer OTHER ==
[2019-09-27] MEDS ORDERED: fentaNYL 250 MCG/5 ML VIAL IVP ONE (06:40)
[2019-09-27] MEDS ORDERED: MIDAZOLAM 2 MG/2 ML VIAL IVP ONE (06:40)
[2019-09-27] MEDS ORDERED: LACTATED RINGERS 1,000 ML IV ONE (07:15)
[2019-09-27 09:48] VITALS: BP 105/75
== END 2019-09-27 06:40 | disposition home or self-care (01) ==
LOC: SDS 06:39
PROVIDERS: ATTEND Surgery
DX: Z12.11 Encounter for screening for malignant neoplasm of colon (principal); K64.8 Other hemorrhoids; K57.30 Diverticulosis of large intestine without perforation or abscess without bleeding; I10 Essential (primary) hypertension; E03.9 Hypothyroidism, unspecified; F41.9 Anxiety disorder, unspecified
CPT/HCPCS: 45378; J3010; J7120

== ENCOUNTER 2020-01-30 15:47 | Outpatient (CLI) | payer OTHER ==
--- NOTE | 2020-01-30 17:14 | XRAY Report ---
PROCEDURE: Foot 3 View LT INDICATIONS: PAINFUL 5TH MT LT FOOT TECHNIQUE: 3 views of the foot were acquired. COMPARISON: 12/28/2018 FINDINGS: Bones: No fractures or dislocations. No suspicious bony lesions. Mild first MTP joint degeneration . Chronic deformity of the fifth metatarsal. Incidentally noted os peroneum Soft tissues: No tibiotalar joint effusion. Achilles tendon appears normal. IMPRESSION: Chronic fifth metatarsal fracture with osseous bridging and callus formation. Grossly unchanged align ment. If the patient's pain or other symptoms persist, consider further evaluation with MRI. Mild first MTP joint degeneration. Reviewed by: Hay Avendaño MD on 01/30/2020 5:12 PM PST Approved by: Hay Avendaño MD on 01/30/2020 5:12 PM PST Station ID: [id number]
== END 2020-01-30 15:48 | disposition home or self-care (01) ==
LOC: DI 15:47
PROVIDERS: ATTEND Podiatrist
DX: M19.072 Primary osteoarthritis, left ankle and foot (principal); M84.475A Pathological fracture, left foot, initial encounter for fracture

== ENCOUNTER 2020-02-12 15:32 | Outpatient (CLI) | payer OTHER ==
--- NOTE | 2020-02-12 17:52 | MRI Report ---
PROCEDURE: Foot LT W/O INDICATIONS: 5TH MT FX, PAIN AND SWELLING TECHNIQUE: Noncontrast coronal and sagittal T1 spin echo and T2 fast spin echo with fat saturation; axial T1 spi n echo and T2 fast spin echo with fat saturation through the midfoot. COMPARISON: Left foot radiographs dated 01/30/2020 FINDINGS: Image quality: Excellent. A skin marker is seen at the dorsal lateral aspect of the midfoot. Bones: Mild chronic posttraumatic deformity of the fifth metatarsal shaft is noted without associate d osseous edema. No acute trabecular bone injury is seen. There is mild hallux valgus with associated degenerative changes at the first metatarsophalangeal joint. A bipartite medial hallux sesamoid is p resent. There are no signs of sesamoiditis. There is mild dorsal spurring at the talonavicular joint. A small nonedematous os perineum is present. Soft tissues: The scanned muscles demonstrate normal overall bulk and internal signal. The visualiz ed portions of the flexor and extensor tendons are intact. The Lisfranc ligament is intact. Subcutane ous tissues appear normal as well. No soft tissue masses are present. IMPRESSION: 1. Mild chronic fracture deformity of the fifth metatarsal shaft without associated edema. 2. Mild hallux valgus with mild to moderate degenerative changes of the first metatarsophalangeal monster int. 3. No significant ligament or tendon injury is seen. Reviewed by: Chandana Garrison MD on 02/12/2020 5:50 PM PST Approved by: Chandana Garrison MD on 02/12/2020 5:50 PM PST Station ID: [id number]
== END 2020-02-12 15:33 | disposition home or self-care (01) ==
LOC: DI 15:32
PROVIDERS: ATTEND Podiatrist
DX: S92.352D Displaced fracture of fifth metatarsal bone, left foot, subsequent encounter for fracture with routine healing (principal); M20.12 Hallux valgus (acquired), left foot; M19.072 Primary osteoarthritis, left ankle and foot

== ENCOUNTER 2020-04-17 08:05 | Outpatient (CLI) | payer OTHER ==
--- NOTE | 2020-04-17 21:23 | XRAY Report ---
PROCEDURE: Foot 3 View LT INDICATIONS: LEFT WEIGHTBEARING TECHNIQUE: 3 weight bearing views of the foot were acquired. COMPARISON: 01/30/2020 and 01/02/2019 FINDINGS: Bones: No acute fractures or dislocations. Stable chronic ossification adjacent to the medial base of the left second toe proximal phalanx. Stable healed fracture deformities of the left fifth metatar katelyn. Mild degenerative changes of the left first metatarsophalangeal joint. No suspicious bony lesion s. Soft tissues: No tibiotalar joint effusion. Achilles tendon appears normal. IMPRESSION: Left foot without acute fracture or dislocation. Degenerative changes of the left first metatarsophalangeal joint. Reviewed by: Neftali Dunn MD on 04/17/2020 9:21 PM PST Approved by: Neftali Dunn MD on 04/17/2020 9:21 PM PST Station ID: [id number]
== END 2020-04-17 23:59 | disposition home or self-care (01) ==
LOC: DI.N 08:05
PROVIDERS: ATTEND Orthopaedic Surgery
DX: M19.072 Primary osteoarthritis, left ankle and foot (principal)

== ENCOUNTER 2021-06-16 15:15 | Emergency (ER) | payer OTHER ==
[2021-06-16 15:40] VITALS: BP 143/80
[2021-06-16 16:08] LABS: BILIRUBIN,URINE NEGATIVE (NEGATIVE); GLUCOSE, URINE (UA) NEGATIVE (NEGATIVE); KETONES,URINE (UA) NEGATIVE (NEGATIVE); LEUKOCYTE ESTERASE, URINE NEGATIVE (NEGATIVE); NITRITE,URINE NEGATIVE (NEGATIVE); OCCULT BLOOD,URINE TRACE-INTA (NEGATIVE); PH,URINE 6.5 PH (5.0-7.5); PROTEIN,URINE NEGATIVE (NEGATIVE); UROBILINOGEN,URINE 0.2 (NORMAL) E.U./dL (NORMAL)
[2021-06-16 16:10] LABS: CLARITY,URINE CLEAR (CLEAR); HCG UR QUAL NEGATIVE
--- NOTE | 2021-06-16 16:25 | ED Physician Documentation ---
PD HPI BACK PAIN - Stated complaint Stated Complaint: BACK PX - Chief complaint Chief Complaint: Back Pain - History obtained from History obtained from: Patient - History of Present Illness Timing - onset: Yesterday Timing - duration: Days (1) Timing - details: Abrupt onset, Still present Location: Lower, Right Quality: Pain, Spasm Associated symptoms: No: Fever, Weakness, Numbness, Hematuria Worsened by: Movement, Twisting, Palpation Contributing factors: Twisting (onset of low back pain while just getting out of car. No higher force injury.) Similar symptoms before: Has not had sx before Recently seen: Not recently seen Review of Systems Constitutional: denies: Fever, Chills Nose: denies: Rhinorrhea / runny nose, Congestion Throat: denies: Sore throat Respiratory: denies: Cough GI: denies: Abdominal Pain, Nausea, Vomiting : denies: Dysuria, Incontinent, Hematuria Skin: denies: Rash, Lesions Musculoskeletal: reports: Back pain (just since ). 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 : None HEENT: None Psych: Depression, Anxiety, Panic attacks Musculoskeletal: None Derm: None - Past Surgical History Past Surgical History: No HEENT: Other - Present Medications Home Medications: Ambulatory Orders Medication Instructions Recorded Confirmed Alprazolam [Xanax] 0.5 mg PO DAILY PRN 03/26/14 06/16/21 Simvastatin 20 mg PO QPM 08/15/14 06/16/21 Cetirizine [ZyrTEC] 10 mg PO DAILY #20 tablet 02/10/17 06/16/21 buPROPion [Wellbutrin Sr] 450 mg PO DAILY 09/22/17 06/16/21 Citalopram Hydrobromide 40 mg PO DAILY 01/23/19 06/16/21 [Citalopram HBr] Levonorgestrel-Ethin Estradiol 1 tab PO DAILY 01/23/19 06/16/21 [Marlissa-28 Tablet] Thyroid,Pork [[place] Thyroid] 90 mg PO BID 01/23/19 06/16/21 Zolpidem Tartrate [Ambien] 10 mg PO QPM PRN 01/23/19 06/16/21 lisinopriL [Lisinopril] 20 mg PO DAILY 01/23/19 06/16/21 HYDROcod/ACETAM 5/325 [[place] 5/325] 1 ea PO Q6H PRN #18 tablet 06/16/21 Naproxen 500 mg PO BID #20 tab.sr 06/16/21 tiZANidine [Zanaflex] 4 mg PO Q8H PRN #20 tablet 06/16/21 - Allergies Allergies/Adverse Reactions: Allergies Allergy/AdvReac Type Severity Reaction Status Date / Time diphenhydramine HCl * Allergy Anxiety Verified 06/16/21 15:34 [From Benadryl] - Social History Does the pt smoke?: No Smoking Status: Never smoker Does the pt drink ETOH?: Yes Does the pt have substance abuse?: No - Immunizations Immunizations are current?: Yes - POLST Patient has POLST: No POLST Status: Full Code PD ED PE NORMAL - Vitals Vital signs reviewed: Yes - General General: Alert and oriented X 3, Well developed/nourished, Other (appears in pain with guarded ROM of the low back. ) - Back Back: No CVA TTP, No spinal TTP (tender right muscles lower back. No trigger point per se. ) - Derm Derm: Normal color, Warm and dry, No rash - Extremities Extremities: No edema, No calf tenderness / cord - Neuro Neuro: Alert and oriented X 3, No motor deficit, No sensory deficit, Normal speech, Other (normal reflex in knees) Results - Vitals Vitals: Oxygen O2 Source Room air - Labs Labs: Laboratory Tests 06/16/21 15:41 Urine Color YELLOW Urine Clarity CLEAR Urine pH 6.5 Ur Specific [place] 1.020 Urine Protein NEGATIVE Urine Glucose (UA) NEGATIVE Urine Ketones NEGATIVE Urine Occult Blood TRACE-INTA Urine Nitrite NEGATIVE Urine Bilirubin NEGATIVE Urine Urobilinogen 0.2 (NORMAL) Ur Leukocyte Esterase NEGATIVE Ur Microscopic Review NOT INDICATED Urine Culture Comments NOT INDICATED Urine HCG, Qual NEGATIVE PD MEDICAL DECISION MAKING - ED course Complexity details: considered differential (mechanical low back pain with low force mechanism without red flags. ), d/w patient Departure - Departure Disposition: 01 Home, Self Care Clinical Impression: Back pain Qualifiers: Back pain location: low back pain Chronicity: acute Back pain laterality: unspecified Sciatica presence: without sciatica Qualified Code(s): M54.50 - Low back pain, unspecified Condition: Stable Record reviewed to determine appropriate education?: Yes Instructions: ED Spasm Back No Trauma Follow-Up: GISSEL PENNINGTON DO [Primary Care Provider] - Prescriptions: Naproxen 500 mg PO BID #20 tab.sr HYDROcod/ACETAM 5/325 [[place] 5/325] 1 ea PO Q6H PRN #18 tablet PRN Reason: Pain tiZANidine [Zanaflex] 4 mg PO Q8H PRN #20 tablet PRN Reason: Spasms Comments: Heat and gentle stretching for the low back. I would suggest some anti- inflammatory such as ibuprofen or naproxen twice daily with food for the next 7 to 10 days. Hopefully this pain will decrease over the next couple of days but may still have some element of soreness for several days to week. Add tizanidine muscle relaxant if needed for spasm. Add Tylenol every 4-6 hours as needed for mild pain or hydrocodone if needed for worse pain. Recheck if not improving well over the next several days and return if worse or other symptoms develop. I transmitted your prescriptions to [facility] in [place]. I am prescribing a short course of narcotic pain medication for you. These are potentially dangerous and addictive medications that should be used carefully. These medications may constipate you. Take an [id number] stool softener such as docusate twice daily with plenty of water while taking these medications. If you go 24 hours without a bowel movement, take [id number] MiraLAX, per package instructions. Do not drink or drive while taking these medications. If you received narcotic or sedating medications while in the emergency department do not drive for 24 hours. Store this medication in a safe, secure place and out of reach of children. It is a violation of federal law to give or sell this medication to another person or to use in a manner other than prescribed. The ED will not refill narcotic prescriptions, including prescriptions lost or stolen. You can dispose of unwanted medications at the [facility]'s office or at several pharmacies such as [facility]. Discharge Date/Time: 06/16/21 17:51
[2021-06-16] MEDS ORDERED: HYDROmorphone 1 MG/ML CARPUJECT IM STA (16:39)
[2021-06-16] MEDS ORDERED: KETOROLAC 30 MG/ML VIAL IM STA (16:39)
--- OUTSIDE RECORDS SUMMARY | 2021-06-16 17:00 | EXTERNAL MEDICAL SUMMARY RPT | Continuity of Care Document ---
:1965 Author Organization [facility] Address [address] [place] [address] Phone Care Team Providers Name Role Phone Booker Glover Unavailable Unavailable Allergies No information. Encounters No information. Medications No information. Problems date description facility [id number] Encounter for screening mammogram for [facility] neoplasm of Results No information.
== END 2021-06-16 17:51 | disposition home or self-care (01) ==
LOC: ED 15:15
DX: M54.50 Low back pain, unspecified (principal)
CPT/HCPCS: 81003; 81025; 96372; 99282; 99283; J1170; 81001; 87086

== ENCOUNTER 2022-03-06 19:13 | Emergency (ER) | payer OTHER ==
--- NOTE | 2022-03-06 19:29 | ED Physician Documentation ---
PD HPI URI - Stated complaint Stated Complaint: COUGH - Chief complaint Chief Complaint: Resp - History obtained from History obtained from: Patient - History of Present Illness Timing - onset: How many days ago (03/29) Timing duration: Days Timing details: Abrupt onset, Still present Associated symptoms: Fever Contributing factors: Sick contact (her with same symptoms started 2 days earlier than her.) Improves by: No: Medication (cough med not helpful. Ibuprofen helps with fevers.) Similar symptoms before: Has not had sx before Recently seen: Not recently seen Review of Systems Constitutional: reports: Fever Nose: reports: Rhinorrhea / runny nose, Congestion Throat: denies: Sore throat Respiratory: reports: Cough. denies: Wheezing GI: reports: Nausea (with coughing hard) Skin: denies: Rash Neurologic: reports: Generalized weakness, Headache. denies: Near syncope, Altered mental status PD PAST MEDICAL HISTORY - Past Medical History Cardiovascular: Hypertension, High cholesterol Respiratory: Other Neuro: None Endocrine/Autoimmune: HyPOthyroidism GI: Other TOGGLER: None : None HEENT: None Psych: Depression, Anxiety, Panic attacks Musculoskeletal: None Derm: None - Past Surgical History Past Surgical History: No HEENT: Other - Present Medications Home Medications: Ambulatory Orders Medication Instructions Recorded Confirmed Alprazolam [Xanax] 0.5 mg PO DAILY PRN 03/26/14 06/16/21 Simvastatin 20 mg PO QPM 08/15/14 06/16/21 Cetirizine [ZyrTEC] 10 mg PO DAILY #20 tablet 02/10/17 06/16/21 buPROPion [Wellbutrin Sr] 450 mg PO DAILY 09/22/17 06/16/21 Citalopram Hydrobromide 40 mg PO DAILY 01/23/19 06/16/21 [Citalopram HBr] Levonorgestrel-Ethin Estradiol 1 tab PO DAILY 01/23/19 06/16/21 [Marlissa-28 Tablet] Thyroid,Pork [[place] Thyroid] 90 mg PO BID 01/23/19 06/16/21 Zolpidem Tartrate [Ambien] 10 mg PO QPM PRN 01/23/19 06/16/21 lisinopriL [Lisinopril] 20 mg PO DAILY 01/23/19 06/16/21 HYDROcod/ACETAM 5/325 [[place] 5/325] 1 ea PO Q6H PRN #18 tablet 06/16/21 Naproxen 500 mg PO BID #20 tab.sr 06/16/21 tiZANidine [Zanaflex] 4 mg PO Q8H PRN #20 tablet 06/16/21 Benzonatate [Tessalon] 100 mg PO TID PRN #20 cap 03/06/22 Ibuprofen [Motrin] 600 mg PO TID PRN #25 tab 03/06/22 Oseltamivir [Tamiflu] 75 mg PO BID #10 cap 03/06/22 guaiFENesin/CODEINE [Robitussin AC] 10 ml PO Q6H PRN #240 ml 03/06/22 - Allergies Allergies/Adverse Reactions: Allergies Allergy/AdvReac Type Severity Reaction Status Date / Time diphenhydramine HCl * Allergy Anxiety Verified 03/06/22 19:16 [From Benadryl] - Social History Does the pt smoke?: No Smoking Status: Never smoker Does the pt drink ETOH?: Yes Does the pt have substance abuse?: No - Immunizations Immunizations are current?: Yes - POLST Patient has POLST: No POLST Status: Full Code PD ED PE NORMAL - Vitals Vital signs reviewed: Yes - General General: Alert and oriented X 3, No acute distress, Well developed/nourished - HEENT HEENT: Ears normal, Moist mucous membranes, Pharynx benign - Neck Neck: Supple, no meningeal sign, No adenopathy - Cardiac Cardiac: RRR, No murmur - Respiratory Respiratory: Clear bilaterally - Derm Derm: Normal color, Warm and dry - Neuro Neuro: Alert and oriented X 3, No motor deficit, Normal speech Results - Vitals Vitals: Oxygen O2 Source Room air - Labs Labs: Laboratory Tests 03/06/22 20:09 Influenza A (Rapid) Negative Influenza B (Rapid) Negative PD MEDICAL DECISION MAKING - ED course Complexity details: reviewed results (her test is negative but has same symptoms as , who tests influenza A positive in ER this evening with her. ), considered differential, d/w patient Departure - Departure Disposition: 01 Home, Self Care Clinical Impression: Influenza A, Viral syndrome Condition: Stable Record reviewed to determine appropriate education?: Yes Instructions: ED Flu Follow-Up: GISSEL PENNINGTON DO [Primary Care Provider] - Prescriptions: Ibuprofen [Motrin] 600 mg PO TID PRN #25 tab PRN Reason: Pain guaiFENesin/CODEINE [Robitussin AC] 10 ml PO Q6H PRN #240 ml PRN Reason: Cough Oseltamivir [Tamiflu] 75 mg PO BID #10 cap Benzonatate [Tessalon] 100 mg PO TID PRN #20 cap PRN Reason: Cough Comments: You have influenza A (the flu) which would certainly account for all your symptoms. This can be blunted a bit by an antiviral called Tamiflu/oseltamivir. Its taken twice daily for 5 days. For your symptoms, so try to stay well-hydrated. Tylenol or ibuprofen 3 times daily as needed for fever and pains. Benzonatate/Tessalon if needed to try to help with cough. Add codeine cough medicine if needed. I sent prescriptions to [facility] in [place]. Anticipate symptoms for 5 to 7 days. Discharge Date/Time: 03/06/22 21:33
[2022-03-06] MEDS ORDERED: BENZONATATE 100 MG CAPSULE PO STA (20:04)
[2022-03-06] MEDS ORDERED: IBUPROFEN 600 MG TABLET PO STA (20:04)
[2022-03-06 20:58] VITALS: BP 130/66
[2022-03-06] MEDS ORDERED: OSELTAMIVIR 75 MG CAPSULE PO STA (21:08)
[2022-03-06] MEDS ORDERED: guaiFENesin/CODEINE 5 ML UDC PO STA (21:18)
== END 2022-03-06 21:33 | disposition home or self-care (01) ==
LOC: ED 19:13
DX: J10.1 Influenza due to other identified influenza virus with other respiratory manifestations (principal); I10 Essential (primary) hypertension; E03.9 Hypothyroidism, unspecified; E78.00 Pure hypercholesterolemia, unspecified
CPT/HCPCS: 87275; 87276; 99282; 99284; A9270

== ENCOUNTER 2023-01-21 14:13 | Emergency (ER) | payer OTHER ==
[2023-01-21 14:33] VITALS: BP 139/65; O2SAT 100
--- NOTE | 2023-01-21 14:34 | ED Physician Documentation ---
History of Present Illness - Stated complaint Stated Complaint: THROAT/EAR PX HEAD PX - Chief complaint Chief Complaint: Heent - History obtained from History obtained from: Patient - Additonal information Additional information: She has been sick for about 3 weeks, cough, runny nose, and significant left greater than right ear pain. Also sore throat. Stated she had fevers "nothing over 100." PD PAST MEDICAL HISTORY - Past Medical History Cardiovascular: Hypertension, High cholesterol Respiratory: Other Neuro: None Endocrine/Autoimmune: HyPOthyroidism GI: Other [employer]: None : None HEENT: None Psych: Depression, Anxiety, Panic attacks Musculoskeletal: None Derm: None - Past Surgical History Past Surgical History: No HEENT: Other - Present Medications Home Medications: Ambulatory Orders Medication Instructions Recorded Confirmed Alprazolam [Xanax] 0.5 mg PO DAILY PRN 03/26/14 06/16/21 Simvastatin 20 mg PO QPM 08/15/14 06/16/21 Cetirizine [ZyrTEC] 10 mg PO DAILY #20 tablet 02/10/17 06/16/21 buPROPion [Wellbutrin Sr] 450 mg PO DAILY 09/22/17 06/16/21 Citalopram Hydrobromide 40 mg PO DAILY 01/23/19 06/16/21 [Citalopram HBr] Levonorgestrel-Ethin Estradiol 1 tab PO DAILY 01/23/19 06/16/21 [Marlissa-28 Tablet] Thyroid,Pork [[place] Thyroid] 90 mg PO BID 01/23/19 06/16/21 Zolpidem Tartrate [Ambien] 10 mg PO QPM PRN 01/23/19 06/16/21 lisinopriL [Lisinopril] 20 mg PO DAILY 01/23/19 06/16/21 HYDROcod/ACETAM 5/325 [[place] 5/325] 1 ea PO Q6H PRN #18 tablet 06/16/21 Naproxen 500 mg PO BID #20 tab.sr 06/16/21 tiZANidine [Zanaflex] 4 mg PO Q8H PRN #20 tablet 06/16/21 Benzonatate [Tessalon] 100 mg PO TID PRN #20 cap 03/06/22 Ibuprofen [Motrin] 600 mg PO TID PRN #25 tab 03/06/22 Oseltamivir [Tamiflu] 75 mg PO BID #10 cap 03/06/22 guaiFENesin/CODEINE [Robitussin AC] 10 ml PO Q6H PRN #240 ml 03/06/22 Amox/Clav 875/125 [Augmentin] 1 each PO Q12H #20 tablet 01/21/23 Benzonatate [Tessalon] 200 mg PO TID PRN #20 cap 01/21/23 Mupirocin 2% Oint [Bactroban 2% 1 applic TOP BID #50 gm 01/21/23 Oint] - Allergies Allergies/Adverse Reactions: Allergies Allergy/AdvReac Type Severity Reaction Status Date / Time diphenhydramine HCl * Allergy Anxiety Verified 03/06/22 19:16 [From Benadryl] - Social History Does the pt smoke?: No Smoking Status: Never smoker Does the pt drink ETOH?: Yes Does the pt have substance abuse?: No - Immunizations Immunizations are current?: Yes - POLST Patient has POLST: No POLST Status: Full Code PD ED PE NORMAL - Vitals Vital signs reviewed: Yes - General General: Alert and oriented X 3, No acute distress - HEENT HEENT: Other (Right TM normal, left TM with severe otitis. The nasal septum is quite inflamed on both sides. Oropharynx normal.) - Neck Neck: Supple, no meningeal sign - Respiratory Respiratory: No respiratory distress, Clear bilaterally - Abdomen Abdomen: Non tender - Neuro Neuro: Alert and oriented X 3, Normal speech Results - Vitals Vitals: Vital Signs - 24 hr 01/21/23 14:23 Temperature 36.5 C Heart Rate 89 Respiratory 20 Rate Blood Pressure 139/65 H O2 Saturation 100 Oxygen O2 Source Room air Departure - Departure Disposition: 01 Home, Self Care Clinical Impression: Upper respiratory infection Qualifiers: URI type: unspecified viral URI Qualified Code(s): J06.9 - Acute upper respiratory infection, unspecified Left otitis media Qualifiers: Otitis media type: suppurative Chronicity: acute Recurrence: recurrent Spontaneous tympanic membrane rupture: without spontaneous rupture Qualified Code(s): H66.005 - Acute suppurative otitis media without spontaneous rupture of ear drum, recurrent, left ear Condition: Good Instructions: ED Otitis Media Acute Adult Prescriptions: Amox/Clav 875/125 [Augmentin] 1 each PO Q12H #20 tablet Mupirocin 2% Oint [Bactroban 2% Oint] 1 applic TOP BID #50 gm Benzonatate [Tessalon] 200 mg PO TID PRN #20 cap PRN Reason: Cough Comments: I sent your prescriptions electronically to the [facility] in [place]. You have a pretty bad left ear infection and your nasal septum on both sides looks inflamed possibly infected as well. For that I am writing oral antibiotics but also the cream to go in your nose. Also something for the cough. Return for new or worsening symptoms. Follow-up with your doctor in about a week for reevaluation. Forms: PCP List
[2023-01-21 15:30] LABS: B. PARAPERTUSSIS- RESP PCR PAN NOT DETECTED; B. PERTUSSIS- RESP PCR PANEL NOT DETECTED; C. PNEUMONIAE- RESP PCR PANEL NOT DETECTED; CORONAVIRUS 229E-RESP PCR NOT DETECTED; CORONAVIRUS HKU1-RESP PCR NOT DETECTED; CORONAVIRUS NL63-RESP PCR NOT DETECTED; CORONAVIRUS OC43-RESP PCR NOT DETECTED; HUMAN METAPNEUMOVIRUS NOT DETECTED; INFLUENZA A- RESP PCR PANEL NOT DETECTED; INFLUENZA B - RESP PCR PANEL NOT DETECTED; M. PNEUMONIAE- RESP PCR PANEL NOT DETECTED; PARAINFLUENZA VIRUS 1 NOT DETECTED; PARAINFLUENZA VIRUS 2 NOT DETECTED; PARAINFLUENZA VIRUS 3 NOT DETECTED; PARAINFLUENZA VIRUS 4 NOT DETECTED; RHINOVIRUS/ENTEROVIRUS NOT DETECTED; RSV- RESP PCR PANEL NOT DETECTED; SARS-CoV-2 -RESP PCR PANEL NOT DETECTED
== END 2023-01-21 14:57 | disposition home or self-care (01) ==
LOC: ED 14:13
DX: J06.9 Acute upper respiratory infection, unspecified (principal); H66.005 Acute suppurative otitis media without spontaneous rupture of ear drum, recurrent, left ear; I10 Essential (primary) hypertension
CPT/HCPCS: 87633; 99283

== ENCOUNTER 2023-02-13 17:06 | Emergency (ER) | payer OTHER ==
[2023-02-13 17:15] VITALS: BP 168/87; O2SAT 98
[2023-02-13] MEDS ORDERED: AZITHROMYCIN 250 MG TABLET PO STA (17:25)
--- NOTE | 2023-02-13 17:27 | ED Physician Documentation ---
History of Present Illness - Stated complaint Stated Complaint: FEVER/EAR/SINUS PX - Chief complaint Chief Complaint: General - History obtained from History obtained from: Patient - Additonal information Additional information: 57-year-old woman with history of recent otitis media who is on Augmentin now presents with worse sinus pain radiating to the left ear with loss of smell and taste and fevers starting last night. PD PAST MEDICAL HISTORY - Past Medical History Past Medical History: Yes Cardiovascular: Hypertension, High cholesterol Respiratory: Other Neuro: None Endocrine/Autoimmune: HyPOthyroidism GI: Other INCIDENT ANALYST: None : None HEENT: None Psych: Depression, Anxiety, Panic attacks Musculoskeletal: None Derm: None - Past Surgical History Past Surgical History: No HEENT: Other - Present Medications Home Medications: Ambulatory Orders Medication Instructions Recorded Confirmed Alprazolam [Xanax] 0.5 mg PO DAILY PRN 03/26/14 06/16/21 Simvastatin 20 mg PO QPM 08/15/14 06/16/21 Cetirizine [ZyrTEC] 10 mg PO DAILY #20 tablet 02/10/17 06/16/21 buPROPion [Wellbutrin Sr] 450 mg PO DAILY 09/22/17 06/16/21 Citalopram Hydrobromide 40 mg PO DAILY 01/23/19 06/16/21 [Citalopram HBr] Levonorgestrel-Ethin Estradiol 1 tab PO DAILY 01/23/19 06/16/21 [Marlissa-28 Tablet] Thyroid,Pork [[place] Thyroid] 90 mg PO BID 01/23/19 06/16/21 Zolpidem Tartrate [Ambien] 10 mg PO QPM PRN 01/23/19 06/16/21 lisinopriL [Lisinopril] 20 mg PO DAILY 01/23/19 06/16/21 HYDROcod/ACETAM 5/325 [[place] 5/325] 1 ea PO Q6H PRN #18 tablet 06/16/21 Naproxen 500 mg PO BID #20 tab.sr 06/16/21 tiZANidine [Zanaflex] 4 mg PO Q8H PRN #20 tablet 06/16/21 Benzonatate [Tessalon] 100 mg PO TID PRN #20 cap 03/06/22 Ibuprofen [Motrin] 600 mg PO TID PRN #25 tab 03/06/22 Oseltamivir [Tamiflu] 75 mg PO BID #10 cap 03/06/22 guaiFENesin/CODEINE [Robitussin AC] 10 ml PO Q6H PRN #240 ml 03/06/22 Amox/Clav 875/125 [Augmentin] 1 each PO Q12H #20 tablet 01/21/23 Benzonatate [Tessalon] 200 mg PO TID PRN #20 cap 01/21/23 Mupirocin 2% Oint [Bactroban 2% 1 applic TOP BID #50 gm 01/21/23 Oint] Azithromycin [Zithromax] 1 tab PO DAILY #4 tab 02/13/23 Fluticasone [Flonase] 1 sprays BIRDIE BID #16 gm 02/13/23 Guaifenesin/Pseudoephedrne HCl 1 each PO BID PRN #20 tab 02/13/23 [Mucinex D ER 600-60 mg Tablet] - Allergies Allergies/Adverse Reactions: Allergies Allergy/AdvReac Type Severity Reaction Status Date / Time diphenhydramine HCl * Allergy Anxiety Verified 02/13/23 17:15 [From Benadryl] - Social History Does the pt smoke?: No Smoking Status: Never smoker Does the pt drink ETOH?: No Does the pt have substance abuse?: No - Immunizations Immunizations are current?: Yes - POLST Patient has POLST: No POLST Status: Full Code PD ED PE NORMAL - Vitals Vital signs reviewed: Yes - General General: Alert and oriented X 3, No acute distress - HEENT HEENT: Pharynx benign, Other (TMs are normal. No mastoid tenderness. Nasal turbinates are swollen and left maxillary sinus tenderness.) - Neck Neck: Supple, no meningeal sign, No bony TTP - Cardiac Cardiac: RRR, No murmur - Respiratory Respiratory: No respiratory distress, Clear bilaterally - Abdomen Abdomen: Non tender - Neuro Neuro: Alert and oriented X 3, Normal speech Results - Vitals Vitals: Vital Signs - 24 hr 02/13/23 17:12 Temperature 36.7 C Heart Rate 97 Respiratory 18 Rate Blood Pressure 168/87 H O2 Saturation 98 Oxygen O2 Source Room air PD Medical Decision Making - ED course ED course: 57-year-old with sinusitis. Note that azithromycin was chosen per her request which is not unreasonable but since she has already failed Augmentin/amoxicillin. Note for MIPS review the reason amoxicillin or Augmentin was not given was for failure of prior treatment [id number] Departure - Departure Disposition: 01 Home, Self Care Clinical Impression: Sinusitis Qualifiers: Sinusitis location: maxillary Chronicity: acute Recurrence: recurrent Qualified Code(s): J01.01 - Acute recurrent maxillary sinusitis Condition: Stable Record reviewed to determine appropriate education?: Yes Instructions: ED Sinusitis Abx Tx Prescriptions: Fluticasone [Flonase] 1 sprays BIRDIE BID #16 gm Guaifenesin/Pseudoephedrne HCl [Mucinex D ER 600-60 mg Tablet] 1 each PO BID PRN #20 tab PRN Reason: congestion Azithromycin [Zithromax] 1 tab PO DAILY #4 tab Comments: Call your doctor to arrange a follow-up appointment, make the next available appointment. In the interim, return anytime if worse or if new symptoms develop.
== END 2023-02-13 17:44 | disposition home or self-care (01) ==
LOC: ED 17:06
DX: J01.01 Acute recurrent maxillary sinusitis (principal)
CPT/HCPCS: 99282; 99283; A9270